=== PATIENT | female | born 1965 | race American Indian/Alaskan Native ===

== ENCOUNTER 2017-09-29 15:42 | Emergency (ER) | payer SELFPAY ==
[2017-09-29 15:49] VITALS: BP 161/103
== END 2017-09-29 18:15 | disposition left against medical advice (07) ==
LOC: ED 15:42
DX: Z43.1 Encounter for attention to gastrostomy (principal); Z53.21 Procedure and treatment not carried out due to patient leaving prior to being seen by health care provider

== ENCOUNTER 2019-03-20 13:07 | Emergency (ER) | payer SELFPAY ==
--- NOTE | 2019-03-20 13:58 | Event Note ---
ED Screening Note ED Screening Note: This initial assessment/diagnostic orders/clinical plan/treatment(s) is/are subject to change based on patients health status, clinical progression and re- assessment by fellow clinical providers in the ED. Further treatment and workup at subsequent clinical providers discretion. Patient/guardian urged not to elope from the ED as their condition may be serious if not clinically assessed and managed. Initial orders include: 53 yo female present with difficulty with eating and drinking due to stomach tube. Stomach tube was placed in 2015. She has progressed to eating and drinking by mouth since tube placement, but now the food and liquids excrete through the tube during meals. She further states that she feels tired and dehydrated.
[2019-03-20 14:53] VITALS: BP 157/108
--- NOTE | 2019-03-20 15:04 | Emergency Department Report ---
ED General Adult HPI - General Chief complaint: Medical Clearance Stated complaint: FEEDING TUBE REMOVED Time Seen by Provider: 03/20/19 14:23 Source: patient, family Mode of arrival: Wheelchair Limitations: Physical Limitation - History of Present Illness Initial comments: 53 y/o female presents to emergency medicine department with family requesting G -tube removal. Patient to the intensive descending 2016. Reports been able to eat and drink to some capacity at present. Reports no pain or bleeding. No fevers or sweats. No abdominal bloating, hemoptysis, hematochezia, diarrhea, constipation.. The NG tube was placed at [facility]. Severity scale (0 -10): 0 Worsens with: none Associated Symptoms: denies: diaphoresis, loss of appetite, malaise, nausea/vomiting, syncope, weakness - Related Data Allergies Allergy/AdvReac Type Severity Reaction Status Date / Time No Known Allergies Allergy Verified 03/20/19 13:53 ED Review of Systems ROS: Stated complaint: FEEDING TUBE REMOVED Other details as noted in HPI Comment: All other systems reviewed and negative ED Past Medical Hx - Past Medical History Hx Hypertension: Yes Additional medical history: seizure - Surgical History Additional Surgical History: brain surg - Social History Smoking Status: Never Smoker ED Physical Exam - General Limitations: Physical Limitation General appearance: alert, in no apparent distress - Head Head exam: Present: atraumatic, normocephalic - Eye Eye exam: Present: normal appearance, PERRL, EOMI Pupils: Present: normal accommodation - ENT ENT exam: Present: normal exam, normal orophraynx, mucous membranes moist - Neck Neck exam: Present: normal inspection, full ROM - Respiratory Respiratory exam: Present: normal lung sounds bilaterally. Absent: respiratory distress - Cardiovascular Cardiovascular Exam: Present: regular rate, normal rhythm. Absent: systolic murmur, diastolic murmur, rubs, gallop - GI/Abdominal GI/Abdominal exam: Present: soft, normal bowel sounds - Extremities Exam Extremities exam: Present: normal inspection, full ROM, normal capillary refill - Back Exam Back exam: Present: normal inspection, full ROM. Absent: CVA tenderness (R), CVA tenderness (L) - Neurological Exam Neurological exam: Present: alert, oriented X3, CN II-XII intact, normal gait - Psychiatric Psychiatric exam: Present: normal affect, normal mood. Absent: agitated, anxious, flat affect, manic, homicidal ideation - Skin Skin exam: Present: warm, dry, intact, normal color. Absent: rash ED Course Vital Signs 03/20/19 03/20/19 13:16 14:53 Temperature 98.2 F Pulse Rate 91 H Respiratory 18 Rate Blood Pressure 152/120 157/108 [Left] O2 Sat by Pulse 100 Oximetry ED Medical Decision Making - Medical Decision Making 53-year-old female with history of G-tube and no complication with the current G-tube presents to emergency department requesting G-tube removal.Advised family and patient of the need to F/U with GI or general surgery for evaluation for removal of Gtube. They are aware of the need for follow up and futher GI testing. Critical care attestation.: If time is entered above; I have spent that time in minutes in the direct care of this critically ill patient, excluding procedure time. ED Disposition Clinical Impression: Feeding difficulty in adult, HTN (hypertension) Disposition: DC-01 TO HOME OR SELFCARE Is pt being admited?: No Does the pt Need Aspirin: No Condition: Stable Instructions: How to Use and Care for Your PEG Tube (ED), Hypertension (ED) Referrals: [facility] [Provider Group] - 2-3 Days (Please follow up with gastrology for further evaluation and treatment options regarding a feeding tube)
== END 2019-03-20 15:00 | disposition home or self-care (01) ==
LOC: ED 13:07
DX: R63.3 Feeding difficulties (principal); I10 Essential (primary) hypertension; Z98.890 Other specified postprocedural states

== ENCOUNTER 2019-11-08 16:52 | Inpatient (IN) | payer MEDICARE ==
[2019-11-08] MEDS ORDERED: SODIUM CHLORIDE 0.9% 1000 ML 1,000 ML ONE (17:19)
[2019-11-08] MEDS ORDERED: SODIUM CHLORIDE 0.9% 1000 ML 1,000 ML IV ONE (17:22)
[2019-11-08] MEDS ORDERED: SODIUM CHLORIDE 0.9% 1000 ML IV SOLN IV ONE (17:59)
[2019-11-08] MEDS ORDERED: cefTRIAXone/NS 2 GM/100 ML 2 GM/100 ML BAG IV SCH (18:00)
[2019-11-08 18:01] LABS: Basophils # (Auto) 0.1 K/mm3 (0.0-0.1); Eosinophils % (Auto) 0.1 % (0.0-4.3); Monocytes # (Auto) 0.4 K/mm3 (0.0-0.8); Monocytes % (Auto) 4.4 % (0.0-7.3)
[2019-11-08 18:11] LABS: INR 0.93 (0.87-1.13); Partial Thromboplastin Time 25.5 Sec. (24.2-36.6)
[2019-11-08 18:15] LABS: Basophils % (Auto) 0.2 % (0.0-1.8); Hematocrit 40.1 % (30.3-42.9); Hemoglobin 12.3 gm/dl (10.1-14.3); Lymphocytes % (Auto) 9.4 % (13.4-35.0); Mean Corpuscular HGB Conc 31 % (30-34); Mean Corpuscular Volume 74 fl (79-97); Red Blood Count 5.44 M/mm3 (3.65-5.03); Red Cell Distribution Width 16.4 % (13.2-15.2)
[2019-11-08 18:16] LABS: Albumin 3.3 g/dL (3.9-5); Calcium 9.1 mg/dL (8.4-10.2); Lymphocytes # (Auto) 0.7 K/mm3 (1.2-5.4)
[2019-11-08 18:26] LABS: Bacteria,Urine 2+ /HPF (Negative); Bilirubin,Urine NEG (Negative); Blood,Urine NEG (Negative); Color,Urine Yellow (Yellow); Mucus,Urine 3+ /HPF; Protein,Urine <15 mg/dL mg/dL (Negative)
[2019-11-08 18:28] LABS: RBC,Urine > 182.0 /HPF (0.0-6.0)
--- NOTE | 2019-11-08 18:35 | XRay Report ---
CHEST 1 VIEW INDICATION / CLINICAL INFORMATION: sepsis. COMPARISON: None available. FINDINGS: SUPPORT DEVICES: Gastrostomy tube projects over the left upper quadrant. HEART / MEDIASTINUM: No significant abnormality. LUNGS / PLEURA: No significant pulmonary or pleural abnormality. No pneumothorax. IMPRESSION: No acute cardiopulmonary abnormality. Signer Name: Tomas Raines MD Signed: 11/08/2019 6:30 PM Workstation Name: [id number]
[2019-11-08 18:51] LABS: Platelet Count 112 K/mm3 (140-440)
--- NOTE | 2019-11-08 19:00 | Emergency Department Report ---
ED General Adult HPI - General Chief complaint: Altered Mental Status Stated complaint: AMS PUI?: No Time Seen by Provider: 11/08/19 17:00 Source: EMS Mode of arrival: Stretcher Limitations: Altered Mental Status - History of Present Illness Initial comments: Patient is a 53-year-old F Turkish female with a past medical history of aneurysm with resulting encephalopathy seizures and recent failure to thrive who is presenting with altered mental status. Patient was found in hotel room. Paramedics not sure who called paramedics. Patient was unresponsive but was moving all extremities but not with any purpose. Patient is unable to speak at this time. Did speak with the patient sister who states that 3 days ago she spoke to her on the phone and patient did not sound well but was able to speak. Family's been encouraging her to eat and drink however this they do not believe that she has had anything to eat or drink in several days. - Related Data Previous Rx's Medication Instructions Recorded Last Taken Type Nitrofurantoin [place]/M-Cryst 100 mg PO Q12HR #14 capsule 09/13/19 Unknown Rx [Macrobid CAP] Ondansetron [Zofran Odt] 4 mg PO Q8HR PRN #20 tab.rapdis 09/13/19 Unknown Rx Allergies Allergy/AdvReac Type Severity Reaction Status Date / Time No Known Allergies Allergy Verified 03/20/19 13:53 ED Review of Systems ROS: Stated complaint: AMS Other details as noted in HPI Comment: Unobtainable due to pts medical conditions ED Past Medical Hx - Past Medical History Hx Hypertension: Yes Hx CVA: Yes Additional medical history: seizure - Surgical History Additional Surgical History: brain surg - Social History Smoking Status: Unknown if ever smoked - Medications Home Medications: Home Medications Medication Instructions Recorded Confirmed Last Taken Type Nitrofurantoin [place]/M-Cryst 100 mg PO Q12HR #14 capsule 09/13/19 Unknown Rx [Macrobid CAP] Ondansetron [Zofran Odt] 4 mg PO Q8HR PRN #20 tab.rapdis 09/13/19 Unknown Rx ED Physical Exam - General Limitations: Altered Mental Status General appearance: lethargic, cachectic (Patient is severely cachectic. She has skin tenting. Patient is taxi cab driver license from 2016 states that she has a history of being obese however she is approximately 66 pounds at this time.) - Head Head exam: Present: atraumatic, normocephalic - Eye Eye exam: Present: normal appearance - ENT ENT exam: Present: mucous membranes dry - Neck Neck exam: Present: normal inspection - Respiratory Respiratory exam: Present: normal lung sounds bilaterally. Absent: respiratory distress, wheezes, rales, rhonchi - Cardiovascular Cardiovascular Exam: Present: regular rate, normal rhythm. Absent: systolic murmur, diastolic murmur, rubs, gallop - GI/Abdominal GI/Abdominal exam: Present: soft, normal bowel sounds. Absent: distended, tenderness, guarding, rebound - Extremities Exam Extremities exam: Present: normal inspection - Back Exam Back exam: Present: normal inspection - Neurological Exam Neurological exam: Present: alert, altered - Skin Skin exam: Present: warm, dry, intact, normal color. Absent: rash ED Course Vital Signs 11/08/19 11/08/19 11/08/19 16:59 17:00 17:09 Pulse Rate 80 76 82 Respiratory 12 15 14 Rate Blood Pressure 104/75 104/75 O2 Sat by Pulse 90 100 Oximetry 11/08/19 11/08/19 11/08/19 17:15 17:30 17:45 Pulse Rate 75 75 74 Respiratory 16 12 16 Rate Blood Pressure 90/69 90/69 82/62 O2 Sat by Pulse 100 99 Oximetry ED Medical Decision Making - Lab Data Result diagrams: 11/08/19 17:45 11/08/19 17:45 Lab Results 11/08/19 11/08/19 11/08/19 Range/Units 17:14 17:45 17:45 WBC 7.8 (4.5-11.0) K/mm3 RBC 5.44 H (3.65-5.03) M/mm3 Hgb 12.3 (10.1-14.3) gm/dl Hct 40.1 (30.3-42.9) % MCV 74 L (79-97) fl MCH 23 L (28-32) pg MCHC 31 (30-34) % RDW 16.4 H (13.2-15.2) % Plt Count 112 L (140-440) K/mm3 Lymph % (Auto) 9.4 L (13.4-35.0) % [place] % (Auto) 4.4 (0.0-7.3) % Eos % (Auto) 0.1 (0.0-4.3) % Baso % (Auto) 0.2 (0.0-1.8) % Lymph # 0.7 L (1.2-5.4) K/mm3 [place] # 0.4 (0.0-0.8) K/mm3 Eos # 0.0 (0.0-0.4) K/mm3 Baso # 0.1 (0.0-0.1) K/mm3 Seg Neutrophils % 84.8 H (40.0-70.0) % Seg Neutrophils # 6.9 (1.8-7.7) K/mm3 PT 12.3 (12.2-14.9) Sec. INR 0.93 (0.87-1.13) APTT 25.5 (24.2-36.6) Sec. Sodium (137-145) mmol/L Potassium (3.6-5.0) mmol/L Chloride (98-107) mmol/L Carbon Dioxide (22-30) mmol/L Anion Gap mmol/L BUN (7-17) mg/dL Creatinine (0.7-1.2) mg/dL Estimated GFR ml/min BUN/Creatinine Ratio % Glucose (65-100) mg/dL POC Glucose 95 (70-105) Lactic Acid (0.7-2.0) mmol/L Calcium (8.4-10.2) mg/dL Total Bilirubin (0.1-1.2) mg/dL AST (5-40) units/L ALT (7-56) units/L Alkaline Phosphatase (35-129) units/L Total Protein (6.3-8.2) g/dL Albumin (3.9-5) g/dL Albumin/Globulin Ratio % Urine Color (Yellow) Urine Turbidity (Clear) Urine pH (5.0-7.0) Ur Specific [place] (1.003-1.030) Urine Protein (Negative) mg/dL Urine Glucose (UA) (Negative) mg/dL Urine Ketones (Negative) mg/dL Urine Blood (Negative) Urine Nitrite (Negative) Urine Bilirubin (Negative) Urine Urobilinogen (<2.0) mg/dL Ur Leukocyte Esterase (Negative) Urine WBC (Auto) (0.0-6.0) /HPF Urine RBC (Auto) (0.0-6.0) /HPF U Epithel Cells (Auto) (0-13.0) /HPF Urine Bacteria (Auto) (Negative) /HPF Urine Mucus /HPF 11/08/19 11/08/19 11/08/19 Range/Units 17:45 17:51 18:10 WBC (4.5-11.0) K/mm3 RBC (3.65-5.03) M/mm3 Hgb (10.1-14.3) gm/dl Hct (30.3-42.9) % MCV (79-97) fl MCH (28-32) pg MCHC (30-34) % RDW (13.2-15.2) % Plt Count (140-440) K/mm3 Lymph % (Auto) (13.4-35.0) % [place] % (Auto) (0.0-7.3) % Eos % (Auto) (0.0-4.3) % Baso % (Auto) (0.0-1.8) % Lymph # (1.2-5.4) K/mm3 [place] # (0.0-0.8) K/mm3 Eos # (0.0-0.4) K/mm3 Baso # (0.0-0.1) K/mm3 Seg Neutrophils % (40.0-70.0) % Seg Neutrophils # (1.8-7.7) K/mm3 PT (12.2-14.9) Sec. INR (0.87-1.13) APTT (24.2-36.6) Sec. Sodium 165 H* (137-145) mmol/L Potassium 3.5 L (3.6-5.0) mmol/L Chloride 115.8 H (98-107) mmol/L Carbon Dioxide 22 (22-30) mmol/L Anion Gap 29 mmol/L BUN 84 H (7-17) mg/dL Creatinine 2.1 H (0.7-1.2) mg/dL Estimated GFR 30 ml/min BUN/Creatinine Ratio 40 % Glucose 129 H (65-100) mg/dL POC Glucose (70-105) Lactic Acid 1.90 (0.7-2.0) mmol/L Calcium 9.1 (8.4-10.2) mg/dL Total Bilirubin 0.50 (0.1-1.2) mg/dL AST 116 H (5-40) units/L ALT 66 H (7-56) units/L Alkaline Phosphatase 144 H (35-129) units/L Total Protein 5.9 L (6.3-8.2) g/dL Albumin 3.3 L (3.9-5) g/dL Albumin/Globulin Ratio 1.3 % Urine Color Yellow (Yellow) Urine Turbidity Clear (Clear) Urine pH 7.0 (5.0-7.0) Ur Specific [place] 1.019 (1.003-1.030) Urine Protein <15 mg/dl (Negative) mg/dL Urine Glucose (UA) Neg (Negative) mg/dL Urine Ketones Neg (Negative) mg/dL Urine Blood Neg (Negative) Urine Nitrite Neg (Negative) Urine Bilirubin Neg (Negative) Urine Urobilinogen 4.0 (<2.0) mg/dL Ur Leukocyte Esterase Neg (Negative) Urine WBC (Auto) 40.0 H (0.0-6.0) /HPF Urine RBC (Auto) > 182.0 (0.0-6.0) /HPF U Epithel Cells (Auto) 1.0 (0-13.0) /HPF Urine Bacteria (Auto) 2+ (Negative) /HPF Urine Mucus 3+ /HPF Vital Signs 11/08/19 11/08/19 11/08/19 16:59 17:00 17:09 Pulse Rate 80 76 82 Respiratory 12 15 14 Rate Blood Pressure 104/75 104/75 O2 Sat by Pulse 90 100 Oximetry 11/08/19 11/08/19 11/08/19 17:15 17:30 17:45 Pulse Rate 75 75 74 Respiratory 16 12 16 Rate Blood Pressure 90/69 90/69 82/62 O2 Sat by Pulse 100 99 Oximetry - Radiology Data Ordering Physician: AISHWARYA HERNANDEZ MD Date of Service: 11/08/19 Procedure(s): XR chest 1V ap Accession Number(s): [id number] cc: AISHWARYA HERNANDEZ MD Fluoro Time In Minutes: CHEST 1 VIEW INDICATION / CLINICAL INFORMATION: sepsis. COMPARISON: None available. FINDINGS: SUPPORT DEVICES: Gastrostomy tube projects over the left upper quadrant. HEART / MEDIASTINUM: No significant abnormality. LUNGS / PLEURA: No significant pulmonary or pleural abnormality. No pneumothorax. IMPRESSION: No acute cardiopulmonary abnormality. Signer Name: Tomas Raines MD Signed: 11/08/2019 6:30 PM Workstation Name: [id number] - Medical Decision Making Patient is a 53-year-old F Turkish female is presenting with altered mental status. Patient is extremely cachectic and presented unresponsive with a right gaze deviation and with hypotensive blood pressure. Patient was placed on sepsis protocol. Patient was started getting IV fluids and her blood pressure did respond. Patient does have urinary tract infection was given Rocephin. Did speak with the patient's sister who stated that they had had discussions in the past about the patient being DNR and she does not feel as though she would want resuscitative efforts. Patient was made DNR here in emergency department Critical Care Time: Yes (30) Critical care attestation.: If time is entered above; I have spent that time in minutes in the direct care of this critically ill patient, excluding procedure time. ED Disposition Clinical Impression: Severe dehydration, Acute renal failure, Hypernatremia, Acute cystitis Disposition: OP ADMIT IP TO THIS HOSP Is pt being admited?: Yes Does the pt Need Aspirin: No Condition: Stable Time of Disposition: 19:02
[2019-11-08] MEDS ORDERED: SODIUM CHLORIDE 0.9% 1000 ML 1,000 ML IV SCH (19:15)
--- NOTE | 2019-11-08 19:27 | Cat Scan Report ---
CT head/brain wo con INDICATION / CLINICAL INFORMATION: altered mental status. TECHNIQUE: All CT scans at this location are performed using CT dose reduction for ALARA by means of automated e xposure control. COMPARISON: None available. FINDINGS: Ventricle size is increased for patient age. There is a focal low-density area seen in the right basa l ganglion and thalamus probably due to acute infarction. No mass or mass effect is seen. There is no evidence of intracranial hemorrhage. Visualized paranasal sinuses are clear. IMPRESSION: 1. Focal low density in the right basal ganglion and thalamus worrisome for acute infarction 2. Ventricle size is increased for patient age Signer Name: Navin Hernandez MD FACR Signed: 11/08/2019 7:23 PM Workstation Name: [id number]
[2019-11-08] MEDS ORDERED: ACETAMINOPHEN 325 MG TAB PO PRN ×2 (22:18→22:20)
[2019-11-08] MEDS ORDERED: ONDANSETRON 4 MG/2 ML INJ IV PRN ×2 (22:18→22:20)
[2019-11-08] MEDS ORDERED: HYDROmorphone 1 MG/1 ML INJ IV PRN (22:19)
[2019-11-09] MEDS: DEXTROSE 5% IN WATER 1,000 ML IV SCH ×3 (00:07→21:57)
[2019-11-09] MEDS: MORPHINE 2 MG/1 ML INJ IV PRN ×2 (00:13→04:33)
[2019-11-09] MEDS: FAMOTIDINE 20 MG/2 ML INJ IV SCH ×3 (00:13→21:56)
[2019-11-09 06:01] LABS: Basophils % (Auto) 0.1 % (0.0-1.8); Eosinophils % (Auto) 0.1 % (0.0-4.3); Hematocrit 34.1 % (30.3-42.9); Hemoglobin 10.4 gm/dl (10.1-14.3); Lymphocytes # (Auto) 0.4 K/mm3 (1.2-5.4); Mean Corpuscular HGB Conc 30 % (30-34); Mean Corpuscular Volume 75 fl (79-97); Monocytes # (Auto) 0.5 K/mm3 (0.0-0.8); Red Blood Count 4.55 M/mm3 (3.65-5.03); Red Cell Distribution Width 16.4 % (13.2-15.2)
[2019-11-09 06:08] LABS: Albumin 2.9 g/dL (3.9-5); Calcium 8.4 mg/dL (8.4-10.2)
[2019-11-09 06:18] LABS: Platelet Count 117 K/mm3 (140-440)
[2019-11-09] MEDS ORDERED: FAMOTIDINE 20 MG TAB PO SCH (10:00)
[2019-11-09] MEDS: cefTRIAXone/NS 1 GM/50 ML 1 GM/50 ML BAG IV SCH (10:36)
--- NOTE | 2019-11-09 11:14 | History and Physical Report ---
History of Present Illness Date of examination: 11/08/19 Date of admission: 11/08/19 19:05 Chief complaint: Altered sensorium 3 days History of present illness: 53-year-old Ukrainian female with a past medical history of aneurysm with resulting encephalopathy seizures and recent failure to thrive who is presenting with altered mental status. Patient was found in hotel room. Paramedics not sure who called paramedics. Patient was unresponsive but was moving all e xtremities but not with any purpose. Patient is unable to speak at this time. ED physician spoke with the patient sister who states that 3 days ago she spoke to her on the phone and patient did not sound well but was able to speak. Family's been encouraging her to eat and drink however this they do not believe that she has had anything to eat or drink in several days. Past Medical History Hypertension: Yes CVA: Yes Additional medical history: seizure Surgical History Additional Surgical History: brain surg Social History Smoking Status: Unknown if ever smoked Family History Not available Medications Home Medications: Home Medications Medication Instructions Recorded Confirmed Last Taken Type Nitrofurantoin [place]/M-Cryst 100 mg PO Q12HR #14 capsule 09/13/19 Unknown Rx [Macrobid CAP] Ondansetron [Zofran Odt] 4 mg PO Q8HR PRN #20 tab.rapdis 09/13/19 Unknown Rx Review of Systems ROS: Stated complaint: AMS Other details as noted in HPI Comment: Unobtainable due to pts medical conditions Medications and Allergies Allergies Allergy/AdvReac Type Severity Reaction Status Date / Time No Known Allergies Allergy Verified 03/20/19 13:53 Home Medications Medication Instructions Recorded Confirmed Last Taken Type Nitrofurantoin [place]/M-Cryst 100 mg PO Q12HR #14 capsule 09/13/19 Unknown Rx [Macrobid CAP] Ondansetron [Zofran Odt] 4 mg PO Q8HR PRN #20 tab.rapdis 09/13/19 Unknown Rx Active Meds: Active Medications Acetaminophen (Tylenol) 650 mg PO Q4H PRN PRN Reason: Pain MILD(1-3)/Fever >100.5/[place]BR[place] Famotidine (Pepcid) 10 mg IV BID ANIYAH Last Admin: 11/09/19 10:35 Dose: 10 mg Documented by: Hydromorphone HCl (Dilaudid) 0.5 mg IV Q3H PRN PRN Reason: Pain , Severe (7-10) Last Admin: 11/08/19 22:33 Dose: 0.5 mg Documented by: Dextrose (D5w) 1,000 mls @ 150 mls/hr IV DIRECT ANIYAH Last Admin: 11/09/19 00:07 Dose: 150 mls/hr Documented by: Ceftriaxone Sodium (Rocephin/Ns 1 Gm/50 Ml) 1 gm in 50 mls @ 100 mls/hr IV Q24HR ANIYAH; Protocol Last Admin: 11/09/19 10:36 Dose: 100 mls/hr Documented by: Morphine Sulfate (Morphine) 2 mg IV Q4H PRN PRN Reason: Pain, Moderate (4-6) Last Admin: 11/09/19 04:33 Dose: 2 mg Documented by: Ondansetron HCl (Zofran) 4 mg IV Q8H PRN PRN Reason: Nausea And Vomiting Sodium Chloride (Sodium Chloride Flush Syringe 10 Ml) 10 ml IV BID [facility] Last Admin: 11/09/19 10:36 Dose: Not Given Documented by: Sodium Chloride (Sodium Chloride Flush Syringe 10 Ml) 10 ml IV PRN PRN PRN Reason: LINE FLUSH Exam - Constitutional Vitals: Temp Pulse Resp BP Pulse Ox 97.3 F L 68 18 123/79 96 11/09/19 04:20 11/09/19 08:55 11/09/19 04:20 11/09/19 04:20 11/09/19 04:30 General appearance: Present: no acute distress, well-nourished - EENT Eyes: Present: PERRL ENT: hearing intact, clear oral mucosa - Neck Neck: Present: supple, normal ROM - Respiratory Respiratory effort: normal Respiratory: bilateral: CTA - Cardiovascular Heart rate: 78 Rhythm: regular Heart Sounds: Present: S1 & S2. Absent: rub, click - Extremities Extremities: no ischemia, pulses intact, pulses symmetrical, No edema Peripheral Pulses: within normal limits - Abdominal General gastrointestinal: Present: soft, non-tender, non-distended, normal bowel sounds Female genitourinary: Present: normal - Rectal Rectal Exam: deferred - Integumentary Integumentary: Present: clear, warm, dry - Musculoskeletal Musculoskeletal: generalized weakness - Neurologic Neurologic: CNII-XII intact, moves all extremities, other (Alert but decreased responsiveness) - Allied Health Allied health notes reviewed: nursing, case management Results - Labs CBC & Chem 7: 11/09/19 05:26 11/09/19 05:26 Labs: Laboratory Last Values WBC 7.1 K/mm3 (4.5-11.0) 11/09/19 05:26 RBC 4.55 M/mm3 (3.65-5.03) 11/09/19 05:26 Hgb 10.4 gm/dl (10.1-14.3) 11/09/19 05:26 Hct 34.1 % (30.3-42.9) D 11/09/19 05:26 MCV 75 fl (79-97) L 11/09/19 05:26 MCH 23 pg (28-32) L 11/09/19 05:26 MCHC 30 % (30-34) 11/09/19 05:26 RDW 16.4 % (13.2-15.2) H 11/09/19 05:26 Plt Count 117 K/mm3 (140-440) L 11/09/19 05:26 Lymph % (Auto) 6.0 % (13.4-35.0) L 11/09/19 05:26 [place] % (Auto) 7.0 % (0.0-7.3) 11/09/19 05:26 Eos % (Auto) 0.1 % (0.0-4.3) 11/09/19 05:26 Baso % (Auto) 0.1 % (0.0-1.8) 11/09/19 05:26 Lymph # 0.4 K/mm3 (1.2-5.4) L 11/09/19 05:26 [place] # 0.5 K/mm3 (0.0-0.8) 11/09/19 05:26 Eos # 0.0 K/mm3 (0.0-0.4) 11/09/19 05:26 Baso # 0.0 K/mm3 (0.0-0.1) 11/09/19 05:26 Seg Neutrophils % 86.8 % (40.0-70.0) H 11/09/19 05:26 Seg Neutrophils # 6.2 K/mm3 (1.8-7.7) 11/09/19 05:26 PT 12.3 Sec. (12.2-14.9) 11/08/19 17:45 INR 0.93 (0.87-1.13) 11/08/19 17:45 APTT 25.5 Sec. (24.2-36.6) 11/08/19 17:45 Sodium 160 mmol/L (137-145) H 11/09/19 05:26 Potassium 3.5 mmol/L (3.6-5.0) L 11/09/19 05:26 Chloride 115.7 mmol/L (98-107) H 11/09/19 05:26 Carbon Dioxide 27 mmol/L (22-30) 11/09/19 05:26 Anion Gap 21 mmol/L 11/09/19 05:26 BUN 81 mg/dL (7-17) H 11/09/19 05:26 Creatinine 1.8 mg/dL (0.7-1.2) H 11/09/19 05:26 Estimated GFR 36 ml/min 11/09/19 05:26 BUN/Creatinine Ratio 45 % 11/09/19 05:26 Glucose 254 mg/dL (65-100) H 11/09/19 05:26 POC Glucose 95 (70-105) 11/08/19 17:14 Lactic Acid 1.60 mmol/L (0.7-2.0) 11/08/19 20:33 Calcium 8.4 mg/dL (8.4-10.2) 11/09/19 05:26 Total Bilirubin 0.30 mg/dL (0.1-1.2) 11/09/19 05:26 AST 69 units/L (5-40) H 11/09/19 05:26 ALT 52 units/L (7-56) 11/09/19 05:26 Alkaline Phosphatase 121 units/L (35-129) 11/09/19 05:26 Total Protein 5.7 g/dL (6.3-8.2) L 11/09/19 05:26 Albumin 2.9 g/dL (3.9-5) L 11/09/19 05:26 Albumin/Globulin Ratio 1.0 % 11/09/19 05:26 Urine Color Yellow (Yellow) 11/08/19 17:51 Urine Turbidity Clear (Clear) 11/08/19 17:51 Urine pH 7.0 (5.0-7.0) 11/08/19 17:51 Ur Specific [place] 1.019 (1.003-1.030) 11/08/19 17:51 Urine Protein <15 mg/dl mg/dL (Negative) 11/08/19 17:51 Urine Glucose (UA) Neg mg/dL (Negative) 11/08/19 17:51 Urine Ketones Neg mg/dL (Negative) 11/08/19 17:51 Urine Blood Neg (Negative) 11/08/19 17:51 Urine Nitrite Neg (Negative) 11/08/19 17:51 Urine Bilirubin Neg (Negative) 11/08/19 17:51 Urine Urobilinogen 4.0 mg/dL (<2.0) 11/08/19 17:51 Ur Leukocyte Esterase Neg (Negative) 11/08/19 17:51 Urine WBC (Auto) 40.0 /HPF (0.0-6.0) H 11/08/19 17:51 Urine RBC (Auto) > 182.0 /HPF (0.0-6.0) 11/08/19 17:51 U Epithel Cells (Auto) 1.0 /HPF (0-13.0) 11/08/19 17:51 Urine Bacteria (Auto) 2+ /HPF (Negative) 11/08/19 17:51 Urine Mucus 3+ /HPF 11/08/19 17:51 Microbiology: Microbiology 11/08/19 18:10 Peripheral/Venous Blood Culture - Preliminary Culture in Progress 11/08/19 18:10 Peripheral/Venous Blood Culture - Preliminary Culture in Progress - Imaging and Cardiology Chest x-ray: report reviewed (NAF ) Imaging and Cardiology: CT Head 1. Focal low density in the right basal ganglion and thalamus worrisome for acute infarction 2. Ventricle size is increased for patient age Do/IV: Voiding Method Diaper IV Catheter Type [Left Leg] Peripheral IV Assessment and Plan Advance Directives: Yes (AND/DNR) VTE prophylaxis?: Chemical Plan of care discussed with patient/family: Yes - Patient Problems (1) Encephalopathy acute Current Visit: Yes Status: Acute Plan to address problem: Secondary to severe dehydration UTI and Hypernatremia (2) KWABENA (acute kidney injury) Current Visit: Yes Status: Acute Plan to address problem: Sec to ATN IV D5W for now Nephrology consult requested (3) Acute cystitis Current Visit: Yes Status: Acute Plan to address problem: IV Rocephin for now (4) Hypernatremia Current Visit: Yes Status: Acute Plan to address problem: IV D5W for now (5) Advance care planning Current Visit: Yes Status: Acute Plan to address problem: Family agreed for DNR (6) Hyperosmolality syndrome Current Visit: Yes Status: Acute Plan to address problem: IV D5W for now Check osmolarity (7) DVT prophylaxis Current Visit: Yes Status: Acute Plan to address problem: On Heparin and GI prophylaxis
--- NOTE | 2019-11-09 11:48 | Consultation ---
History of Present Illness - Reason for Consult Consult date: 11/09/19 acute renal failure, hypernatremia - History of Present Illness The patient is a 53 YO old AAF with history significant for aneurysm with resulting encephalopathy, seizures and s/p PEG tube who presented to [facility] ED 11/07 with altered mental status. Unable to obtain any history from patient and there was no family member at the bedside. She was found in hotel room. Paramedics not sure who called the. ED physician spoke with the patient sister who states that 3 days ago she spoke to her on the phone and patient did not sound well but was able to speak. Family's been encouraging her to eat and drink however this they do not believe that she has had anything to eat or drink in several days. Labs significant for Creat 2.1 and Sodium 165. Nephrology was consulted for further evaluation. Past History Past Medical History: other (See HPI.) Medications and Allergies Allergies Allergy/AdvReac Type Severity Reaction Status Date / Time No Known Allergies Allergy Verified 03/20/19 13:53 Home Medications Medication Instructions Recorded Confirmed Last Taken Type Nitrofurantoin [place]/M-Cryst 100 mg PO Q12HR #14 capsule 09/13/19 Unknown Rx [Macrobid CAP] Ondansetron [Zofran Odt] 4 mg PO Q8HR PRN #20 tab.rapdis 09/13/19 Unknown Rx Active Meds: Active Medications Acetaminophen (Tylenol) 650 mg PO Q4H PRN PRN Reason: Pain MILD(1-3)/Fever >100.5/MEMBRENO Famotidine (Pepcid) 10 mg IV BID ANIYAH Last Admin: 11/09/19 10:35 Dose: 10 mg Documented by: Hydromorphone HCl (Dilaudid) 0.5 mg IV Q3H PRN PRN Reason: Pain , Severe (7-10) Last Admin: 11/08/19 22:33 Dose: 0.5 mg Documented by: Dextrose (D5w) 1,000 mls @ 150 mls/hr IV DIRECT ANIYAH Last Admin: 11/09/19 00:07 Dose: 150 mls/hr Documented by: Ceftriaxone Sodium (Rocephin/Ns 1 Gm/50 Ml) 1 gm in 50 mls @ 100 mls/hr IV Q24HR ANIYAH; Protocol Last Admin: 11/09/19 10:36 Dose: 100 mls/hr Documented by: Morphine Sulfate (Morphine) 2 mg IV Q4H PRN PRN Reason: Pain, Moderate (4-6) Last Admin: 11/09/19 04:33 Dose: 2 mg Documented by: Ondansetron HCl (Zofran) 4 mg IV Q8H PRN PRN Reason: Nausea And Vomiting Sodium Chloride (Sodium Chloride Flush Syringe 10 Ml) 10 ml IV BID ANIYAH Last Admin: 11/09/19 10:36 Dose: Not Given Documented by: Sodium Chloride (Sodium Chloride Flush Syringe 10 Ml) 10 ml IV PRN PRN PRN Reason: LINE FLUSH Review of Systems ROS unobtainable: due to mental status Exam - Vital Signs Vital signs: Vital Signs Pulse Resp 80 12 11/08/19 16:59 11/08/19 16:59 - General Appearance General appearance: well-developed, cachectic, other (no distress) EENT: ATNC, PERRL Neck: Present: neck supple, trachea midline Respiratory: Clear to Ascultation Heart: regular, S1S2, no murmurs Gastrointestinal: Present: normoactive bowel sounds, other (PEG tube noted). Absent: tenderness, distended Integumentary: no rash, warm and dry Neurologic: obtunded Musculoskeletal: Present: other (no edema) Results - Lab Results 11/09/19 05:26 11/09/19 05:26 Most recent lab results Calcium 8.4 mg/dL (8.4-10.2) 11/09/19 05:26 - Image Kidney/bladder ultrasound: pending Assessment and Plan 1. Acute kidney injury: Vasomotor KWABENA in the setting of volume depletion. Urine studies and Renal US ordered. BP was low, now improving. Continue IV fluids. Monitor renal function. Creatinine is 1.8 from 2.1. Renal prognosis is guarded. Avoid nephrotoxic agents. Meds dosage based on GFR. 2. FEN: Hypernatremia, continue IV D5W, improving, monitor. Monitor lytes and volume status. 3. Encephalopathy, POA. 4. Elevated Transaminases. 5. UTI.
[2019-11-09] MEDS: HEPARIN 5,000 UNIT/1 ML VIAL SUB-Q SCH ×2 (13:30→21:56)
--- NOTE | 2019-11-10 04:09 | Progress Note ---
Assessment and Plan - Patient Problems (1) Encephalopathy acute Current Visit: Yes Status: Acute Plan to address problem: Secondary to severe dehydration UTI and Hypernatremia (2) KWABENA (acute kidney injury) Current Visit: Yes Status: Acute Plan to address problem: Sec to ATN IV D5W for now Nephrology consult requested (3) Acute cystitis Current Visit: Yes Status: Acute Plan to address problem: IV Rocephin for now (4) Hypernatremia Current Visit: Yes Status: Acute Plan to address problem: IV D5W for now (5) Advance care planning Current Visit: Yes Status: Acute Plan to address problem: Family agreed for DNR (6) Hyperosmolality syndrome Current Visit: Yes Status: Acute Plan to address problem: IV D5W for now Check osmolarity (7) DVT prophylaxis Current Visit: Yes Status: Acute Plan to address problem: On Heparin and GI prophylaxis Subjective Date of service: 11/09/19 Principal diagnosis: Acute Encephalopathy Interval history: 53-year-old Spanish female with a past medical history of aneurysm with resulting encephalopathy seizures and recent failure to thrive who is presenting with altered mental status. Patient was found in hotel room. Paramedics not sure who called paramedics. Patient was unresponsive but was moving all extremities but not with any purpose. Patient is unable to speak at this time. ED physician spoke with the patient sister who states that 3 days ago she spoke to her on the phone and patient did not sound well but was able to speak. Darshan carbajal's been encouraging her to eat and drink however this they do not believe that she has had anything to eat or drink in several days. Mopre alert compared to yesterday Objective - Constitutional Vitals: Vital Signs - 12hr 11/09/19 11/09/19 11/09/19 16:50 17:09 20:23 Temperature 98.0 F 97.5 F L Pulse Rate 59 L Pulse Rate [ Apical] Respiratory 18 16 Rate Blood Pressure 125/89 102/72 O2 Sat by Pulse 96 100 Oximetry 11/09/19 11/09/19 11/09/19 22:00 22:02 23:53 Temperature 97.6 F Pulse Rate 74 35 L Pulse Rate [ 59 L Apical] Respiratory 16 18 Rate Blood Pressure 111/87 O2 Sat by Pulse 100 94 Oximetry 11/09/19 23:56 Temperature Pulse Rate 74 Pulse Rate [ Apical] Respiratory Rate Blood Pressure O2 Sat by Pulse Oximetry General appearance: Present: no acute distress, well-nourished - EENT Eyes: PERRL, EOM intact ENT: hearing intact, clear oral mucosa Ears: bilateral: normal - Neck Neck: supple, normal ROM - Respiratory Respiratory effort: normal Respiratory: bilateral: CTA - Breasts Breasts: deferred - Cardiovascular Rhythm: regular Heart Sounds: Present: S1 & S2. Absent: gallop, rub Extremities: pulses intact, No edema, normal color, Full ROM - Gastrointestinal General gastrointestinal: Present: soft, non-tender, non-distended, normal bowel sounds - Genitourinary Female genitourinary: normal - Integumentary Integumentary: clear, warm, dry - Musculoskeletal Musculoskeletal: 1, strength equal bilaterally - Neurologic Neurologic: moves all extremities - Psychiatric Psychiatric: memory intact, appropriate mood/affect, intact judgment & insight - Allied health notes Allied health notes reviewed: nursing, case management - Labs CBC & Chem 7: 11/09/19 05:26 11/09/19 05:26 Labs: Abnormal lab results 11/09/19 11/09/19 Range/Units 05:26 05:26 MCV 75 L (79-97) fl MCH 23 L (28-32) pg RDW 16.4 H (13.2-15.2) % Plt Count 117 L (140-440) K/mm3 Lymph % (Auto) 6.0 L (13.4-35.0) % Lymph # 0.4 L (1.2-5.4) K/mm3 Seg Neutrophils % 86.8 H (40.0-70.0) % Sodium 160 H (137-145) mmol/L Potassium 3.5 L (3.6-5.0) mmol/L Chloride 115.7 H (98-107) mmol/L BUN 81 H (7-17) mg/dL Creatinine 1.8 H (0.7-1.2) mg/dL Glucose 254 H (65-100) mg/dL AST 69 H (5-40) units/L Total Protein 5.7 L (6.3-8.2) g/dL Albumin 2.9 L (3.9-5) g/dL
[2019-11-10 05:31] LABS: Albumin 2.6 g/dL (3.9-5); Calcium 8.1 mg/dL (8.4-10.2)
[2019-11-10] MEDS ORDERED: POTASSIUM PHOSPHATE 30 MMOL in SODIUM CHLORIDE 0.9% 500 ML 500 ML IV ONE (08:30)
[2019-11-10] MEDS ORDERED: MAGNESIUM SULFATE 2 GM/50 ML BAG IV ONE (08:30)
[2019-11-10] MEDS: cefTRIAXone/NS 1 GM/50 ML 1 GM/50 ML BAG IV SCH (09:11)
[2019-11-10] MEDS: FAMOTIDINE 20 MG/2 ML INJ IV SCH ×2 (09:11→21:05)
[2019-11-10] MEDS: HEPARIN 5,000 UNIT/1 ML VIAL SUB-Q SCH ×2 (09:12→21:05)
--- NOTE | 2019-11-10 09:33 | Progress Note ---
Assessment and Plan 1. Acute kidney injury: Vasomotor KWABENA in the setting of volume depletion. Urine studies and Renal US ordered. BP was low, now improving. D5W d/c. Monitor renal function. Creatinine is 1.3 from 1.8 from 2.1. Renal prognosis is guarded. Avoid nephrotoxic agents. Meds dosage based on GFR. 2. FEN: Hypernatremia, D5W d/c, improving, monitor sodium level closely. Hypomagnesemia, replete mag, monitor. Hypokalemia, K-phos, d/c D5, monitor. Hypophosphatemia, K-phos, monitor. Repeat labs ordered for this afternoon, will monitor for results. Monitor lytes and volume status. 3. Encephalopathy, POA. 4. Elevated Transaminases. 5. UTI. On abx. 6. PEG tube malfunction: GI consulted. Subjective Date of service: 11/10/19 Principal diagnosis: Acute Encephalopathy Interval history: Patient was seen and examined at the bedside. Pt is now DNR. PEG tube is not functioning currently, awaiting GI. Discussed plan of care with primary RN regarding d/c of D5 at this time. Objective - Exam Narrative Exam: General appearance: well-developed, cachectic, no distress noted EENT: ATNC, PERRL Neck: neck supple, trachea midline Respiratory: Clear to Ascultation Heart: regular, S1S2, no murmurs Gastrointestinal: normoactive bowel sounds, PEG tube noted, no tenderness, no distension Integumentary: no rash, warm and dry Neurologic: awake, not following any command, no attempt at verbal communication Musculoskeletal: no edema noted - Vital Signs Vital signs: Vital Signs - 12hr 11/09/19 11/09/19 11/09/19 22:00 22:02 23:53 Temperature 97.6 F Pulse Rate 74 35 L Pulse Rate [ 59 L Apical] Respiratory 16 18 Rate Blood Pressure 111/87 O2 Sat by Pulse 100 94 Oximetry 11/09/19 11/10/19 11/10/19 23:56 05:15 06:00 Temperature 97.6 F Pulse Rate 74 68 68 Pulse Rate [ Apical] Respiratory 18 Rate Blood Pressure 128/82 O2 Sat by Pulse 100 Oximetry 11/10/19 07:10 Temperature 98.7 F Pulse Rate 69 Pulse Rate [ Apical] Respiratory 18 Rate Blood Pressure 154/88 O2 Sat by Pulse 100 Oximetry - Lab 11/09/19 05:26 11/10/19 04:22 Most recent lab results Calcium 8.1 mg/dL (8.4-10.2) L 11/10/19 04:22 Phosphorus 2.10 mg/dL (2.5-4.5) L 11/10/19 04:22 Magnesium 1.60 mg/dL (1.7-2.3) L 11/10/19 04:22 Medications & Allergies - Medications Allergies/Adverse Reactions: Allergies No Known Allergies Allergy (Verified 03/20/19 13:53) Home Medications: Home Medications Medication Instructions Recorded Confirmed Last Taken Type Nitrofurantoin [place]/M-Cryst 100 mg PO Q12HR #14 capsule 09/13/19 Unknown Rx [Macrobid CAP] Ondansetron [Zofran Odt] 4 mg PO Q8HR PRN #20 tab.rapdis 09/13/19 Unknown Rx Active Medications: Generic Name Dose Route Start Last Admin Trade Name Freq PRN Reason Stop Dose Admin Acetaminophen 650 mg 11/08/19 22:18 Tylenol PO Q4H PRN Pain MILD(1-3)/Fever >100.5/MEMBRENO Famotidine 10 mg 11/08/19 23:00 11/10/19 09:11 Pepcid IV 10 mg BID ANIYAH Administration Heparin Sodium (Porcine) 5,000 unit 11/09/19 12:00 11/10/19 09:12 Heparin SUB-Q 5,000 unit Q12HR ANIYAH Administration Hydromorphone HCl 0.5 mg 11/08/19 22:19 11/08/19 22:33 Dilaudid IV 0.5 mg Q3H PRN Administration Pain , Severe (7-10) Dextrose 1,000 mls @ 50 mls/hr 11/08/19 23:00 11/09/19 21:57 D5w IV 150 mls/hr DIRECT ANIYAH Administration Ceftriaxone Sodium 1 gm in 50 mls @ 100 mls/hr 11/09/19 10:00 11/10/19 09:11 Rocephin/Ns 1 Gm/50 Ml IV 11/15/19 10:29 100 mls/hr Q24HR ANIYAH Administration Protocol Potassium Phosphate 30 mmol/ 510 mls @ 85 mls/hr 11/10/19 08:30 11/10/19 08:17 Sodium Chloride IV 11/10/19 14:29 85 mls/hr ONCE ONE Administration Magnesium Sulfate 2 gm in 50 mls @ 25 mls/hr 11/10/19 08:30 11/10/19 08:14 Magnesium Sulfate 2gm/50ml IV 11/10/19 10:29 25 mls/hr ONCE ONE Administration Morphine Sulfate 2 mg 11/08/19 22:19 11/09/19 04:33 Morphine IV 2 mg Q4H PRN Administration Pain, Moderate (4-6) Ondansetron HCl 4 mg 11/08/19 22:18 Zofran IV Q8H PRN Nausea And Vomiting Sodium Chloride 10 ml 11/09/19 10:00 11/10/19 09:12 Sodium Chloride Flush Syringe 10 Ml IV 10 ml BID ANIYAH Administration Sodium Chloride 10 ml 11/08/19 22:18 Sodium Chloride Flush Syringe 10 Ml IV PRN PRN LINE FLUSH
--- NOTE | 2019-11-10 13:05 | Gastroenterology Consultation ---
History of Present Illness - Reason for Consult Consult date: 11/10/19 Malfunctioning PEG Requesting physician: JUNIOR LEMON - History of Present Illness The patient was admitted with what appears to be a new CVA, on top of prior brain injury (?aneurysm per old notes). She has had a PEG for at least a year, but it appears from old chart notes, that the patient was not using it, and wished for it to be removed. She was admitted after being found at a hotel, missing for 3 days per family. She is poorly responsive, and not taking PO here. Her PEG was noted to be dysfunctional by nursing, though a CT on admit shows the button in correct position in the lumen of the stomach. There has been no bleeding or discharge around the tube. The patient has had no emesis or melena. Past History Past Medical History: seizures, stroke (New, and hx of (?aneurysm)) Past Surgical History: Other (PEG, Brain Surgery) Social history: lives with family, other Family history: no significant family history Medications and Allergies Allergies Allergy/AdvReac Type Severity Reaction Status Date / Time No Known Allergies Allergy Verified 03/20/19 13:53 Home Medications Medication Instructions Recorded Confirmed Last Taken Type Nitrofurantoin [place]/M-Cryst 100 mg PO Q12HR #14 capsule 09/13/19 Unknown Rx [Macrobid CAP] Ondansetron [Zofran Odt] 4 mg PO Q8HR PRN #20 tab.rapdis 09/13/19 Unknown Rx Active Meds: Active Medications Acetaminophen (Tylenol) 650 mg PO Q4H PRN PRN Reason: Pain MILD(1-3)/Fever >100.5/[place] Famotidine (Pepcid) 10 mg IV BID [facility] Last Admin: 11/10/19 09:11 Dose: 10 mg Documented by: Heparin Sodium (Porcine) (Heparin) 5,000 unit SUB-Q Q12HR [facility] Last Admin: 11/10/19 09:12 Dose: 5,000 unit Documented by: Hydromorphone HCl (Dilaudid) 0.5 mg IV Q3H PRN PRN Reason: Pain , Severe (7-10) Last Admin: 11/08/19 22:33 Dose: 0.5 mg Documented by: Ceftriaxone Sodium (Rocephin/Ns 1 Gm/50 Ml) 1 gm in 50 mls @ 100 mls/hr IV Q24HR ANIYAH; Protocol Stop: 11/15/19 10:29 Last Admin: 11/10/19 09:11 Dose: 100 mls/hr Documented by: Potassium Phosphate 30 mmol/ (Sodium Chloride) 510 mls @ 85 mls/hr IV ONCE ONE Stop: 11/10/19 14:29 Last Admin: 11/10/19 08:17 Dose: 85 mls/hr Documented by: Morphine Sulfate (Morphine) 2 mg IV Q4H PRN PRN Reason: Pain, Moderate (4-6) Last Admin: 11/09/19 04:33 Dose: 2 mg Documented by: Ondansetron HCl (Zofran) 4 mg IV Q8H PRN PRN Reason: Nausea And Vomiting Sodium Chloride (Sodium Chloride Flush Syringe 10 Ml) 10 ml IV BID ANIYAH Last Admin: 11/10/19 09:12 Dose: 10 ml Documented by: Sodium Chloride (Sodium Chloride Flush Syringe 10 Ml) 10 ml IV PRN PRN PRN Reason: LINE FLUSH I HAVE REVIEWED/RECONCILED MEDICATIONS Review of Systems - Review of Systems ROS unobtainable: due to mental status Exam - Constitutional Vital Signs: Temp Pulse Resp BP Pulse Ox 98.1 F 80 19 141/73 100 11/10/19 11:00 11/10/19 11:00 11/10/19 11:00 11/10/19 11:00 11/10/19 11:00 General appearance: no acute distress, disheveled - EENT Eyes: PERRL, EOM intact ENT: clear oral mucosa, poor dentition - Neck Neck: supple, normal ROM - Respiratory Respiratory effort: normal Respiratory: bilateral: CTA - Cardiovascular Rhythm: regular Heart Sounds: Present: S1 & S2 Extremities: no ischemia, No edema - Gastrointestinal General gastrointestinal: Present: soft, non-tender, non-distended, other (PEG tube cracked and missing terminal connector; no obvious cellulitis or bleeding at base) - Integumentary Integumentary: Present: clear, warm - Musculoskeletal Musculoskeletal: other (Contracted LUE) - Neurologic Neurological: other (Follows no commands; nonverbal) - Labs CBC & Chem 7: 11/09/19 05:26 11/10/19 04:22 Lab Results: Laboratory Results - last 24 hr 11/10/19 04:22 Sodium 146 H D Potassium 3.1 L Chloride 106.3 Carbon Dioxide 26 Anion Gap 17 BUN 59 H Creatinine 1.3 H Estimated GFR 52 BUN/Creatinine Ratio 45 Glucose 138 H Calcium 8.1 L Phosphorus 2.10 L Magnesium 1.60 L Total Bilirubin 0.30 AST 39 ALT 38 Alkaline Phosphatase 106 Total Protein 4.8 L Albumin 2.6 L Albumin/Globulin Ratio 1.2 Assessment and Plan - Patient Problems (1) Malfunction of gastrostomy tube Current Visit: Yes Status: Acute Plan to address problem: - Given mental status, patient will likely require PEG tube feeds for some time. - Will order replacement PEG, and exchange out for current PEG tomorrow. - If urgent meds needed today, OK to place [facility] for administration (or for feeding; will not preclude PEG replacement tomorrow).
[2019-11-10 14:46] LABS: BUN/Creatinine Ratio 49; Blood Urea Nitrogen 49 mg/dL (7-17); Calcium 8.1 mg/dL (8.4-10.2); Hemolysis Index 11
[2019-11-10 18:16] LABS: Creatinine,Urine 14.8 mg/dL (0.1-20.0)
--- NOTE | 2019-11-11 02:39 | Ultrasound Report ---
EXAMINATION: Renal/Retroperitoneal Ultrasound INDICATION: Acute renal failure. COMPARISON: CT of the abdomen and pelvis, 09/12/2019 Findings: The right kidney appears normal in size and cortical echogenicity, measuring 9.8 cm in length. There is no evidence of hydronephrosis. The left kidney was unable to be visualized due to patient positioning and rib shadowing. A right pleural effusion is present. Impression: 1. No sonographic abnormality of the right kidney. 2. Nonvisualization of the left kidney. Signer Name: Claudia Rojas MD Signed: 11/11/2019 2:35 AM Workstation Name: [id number]
[2019-11-11 04:46] LABS: BUN/Creatinine Ratio 50; Blood Urea Nitrogen 40 mg/dL (7-17); Calcium 8.3 mg/dL (8.4-10.2); Hemolysis Index 4
--- NOTE | 2019-11-11 07:16 | Progress Note ---
Assessment and Plan - Patient Problems (1) Encephalopathy acute Current Visit: Yes Status: Acute Plan to address problem: Secondary to severe dehydration UTI and Hypernatremia (2) KWABENA (acute kidney injury) Current Visit: Yes Status: Acute Plan to address problem: Sec to ATN IV D5W for now Nephrology consult appreciated Creatinine near base line (3) Acute cystitis Current Visit: Yes Status: Acute Plan to address problem: IV Rocephin for now (4) Hypernatremia Current Visit: Yes Status: Acute Plan to address problem: IV D5W for now Improved Near baseline (5) Advance care planning Current Visit: Yes Status: Acute Plan to address problem: Family agreed for DNR (6) Hyperosmolality syndrome Current Visit: Yes Status: Acute Plan to address problem: IV D5W for now Check osmolarity (7) DVT prophylaxis Current Visit: Yes Status: Acute Plan to address problem: On Heparin and GI prophylaxis Subjective Date of service: 11/10/19 Principal diagnosis: Acute Encephalopathy Interval history: 53-year-old [place] female with a past medical history of aneurysm with resulting encephalopathy seizures and recent failure to thrive who is presenting with altered mental status. Patient was found in hotel room. Paramedics not sure who called paramedics. Patient was unresponsive but was moving all extremities but not with any purpose. Patient is unable to speak at this time. ED physician spoke with the patient sister who states that 3 days ago she spoke to her on the phone and patient did not sound well but was able to speak. Family's been encouraging her to eat and drink however this they do not believe that she has had anything to eat or drink in several days. Mopre alert today Objective - Constitutional Vitals: Vital Signs - 12hr 11/10/19 11/10/19 11/10/19 19:24 22:00 23:52 Temperature 98.0 F Pulse Rate 63 69 Pulse Rate [ 63 Left Radial] Pulse Rate [ 63 Right Radial] Respiratory 16 16 16 Rate Blood Pressure 137/93 137/91 O2 Sat by Pulse 94 91 Oximetry 11/11/19 03:00 Temperature Pulse Rate 69 Pulse Rate [ Left Radial] Pulse Rate [ Right Radial] Respiratory Rate Blood Pressure O2 Sat by Pulse Oximetry General appearance: Present: no acute distress, well-nourished - EENT Eyes: PERRL, EOM intact ENT: hearing intact, clear oral mucosa Ears: bilateral: normal - Neck Neck: supple, normal ROM - Respiratory Respiratory effort: normal Respiratory: bilateral: CTA - Breasts Breasts: normal - Cardiovascular Heart rate: 78 Rhythm: regular Heart Sounds: Present: S1 & S2. Absent: gallop, rub Extremities: pulses intact, No edema, normal color, Full ROM - Gastrointestinal General gastrointestinal: Present: soft, non-tender, non-distended, normal bowel sounds - Genitourinary Female genitourinary: normal - Integumentary Integumentary: clear, warm, dry - Musculoskeletal Musculoskeletal: 1, strength equal bilaterally - Neurologic Neurologic: moves all extremities - Psychiatric Psychiatric: memory intact, appropriate mood/affect, intact judgment & insight - Labs CBC & Chem 7: 11/09/19 05:26 11/11/19 03:56 Labs: Abnormal lab results 11/10/19 11/11/19 Range/Units 13:51 03:56 Sodium 146 H 149 H (137-145) mmol/L Potassium 3.5 L (3.6-5.0) mmol/L Chloride 107.9 H 107.4 H (98-107) mmol/L BUN 49 H 40 H (7-17) mg/dL Calcium 8.1 L 8.3 L (8.4-10.2) mg/dL
--- NOTE | 2019-11-11 08:23 | Progress Note ---
Assessment and Plan 1. Acute kidney injury: Vasomotor KWABENA in the setting of volume depletion. Urine studies and Renal US ordered. BP was low, now improving. D5W w/ K ordered. Monitor renal function. Creatinine is 0.8 from 1.3 from 1.8 from 2.1. Renal prognosis is guarded. Avoid nephrotoxic agents. Meds dosage based on GFR. 2. FEN: Hypernatremia, monitor sodium level closely. Hypomagnesemia, replete mag as needed, monitor. Hypokalemia, D5 w/ K ordered, monitor. Hypophosphatemia, monitor. Monitor lytes and volume status. 3. Encephalopathy, POA. 4. Elevated Transaminases. 5. UTI. On abx. 6. PEG tube malfunction: Plan to replace PEG today. GI following. Subjective Date of service: 11/11/19 Principal diagnosis: Acute Encephalopathy Interval history: Patient was seen and examined at the bedside. Pt is now DNR. PEG tube is supposed to be changed out today. No acute events reported overnight. Objective - Exam Narrative Exam: General appearance: well-developed, cachectic, no distress noted EENT: ATNC, PERRL Neck: neck supple, trachea midline Respiratory: Clear to Ascultation Heart: regular, S1S2, no murmurs Gastrointestinal: normoactive bowel sounds, PEG tube noted, no tenderness, no distension Integumentary: no rash, warm and dry Neurologic: awake, not following any command, no attempt at verbal communication Musculoskeletal: no edema noted - Vital Signs Vital signs: Vital Signs - 12hr 11/10/19 11/10/19 11/11/19 22:00 23:52 03:00 Temperature Pulse Rate 69 69 Pulse Rate [ 63 Left Radial] Pulse Rate [ 63 Right Radial] Respiratory 16 16 Rate Blood Pressure 137/91 O2 Sat by Pulse 91 Oximetry 11/11/19 11/11/19 03:43 08:03 Temperature 97.7 F Pulse Rate 67 Pulse Rate [ Left Radial] Pulse Rate [ Right Radial] Respiratory 16 16 Rate Blood Pressure 118/95 112/87 O2 Sat by Pulse 98 Oximetry - Lab 11/09/19 05:26 11/11/19 03:56 Most recent lab results Calcium 8.3 mg/dL (8.4-10.2) L 11/11/19 03:56 Phosphorus 3.70 mg/dL (2.5-4.5) D 11/11/19 03:56 Magnesium 2.20 mg/dL (1.7-2.3) 11/11/19 03:56 Urine Creatinine 14.8 mg/dL (0.1-20.0) 11/10/19 17:45 Urine Sodium 15 mmol/L 11/10/19 17:45 Medications & Allergies - Medications Allergies/Adverse Reactions: Allergies No Known Allergies Allergy (Verified 03/20/19 13:53) Home Medications: Home Medications Medication Instructions Recorded Confirmed Last Taken Type Nitrofurantoin [place]/M-Cryst 100 mg PO Q12HR #14 capsule 09/13/19 Unknown Rx [Macrobid CAP] Ondansetron [Zofran Odt] 4 mg PO Q8HR PRN #20 tab.rapdis 09/13/19 Unknown Rx Active Medications: Generic Name Dose Route Start Last Admin Trade Name Freq PRN Reason Stop Dose Admin Acetaminophen 650 mg 11/08/19 22:18 Tylenol PO Q4H PRN Pain MILD(1-3)/Fever >100.5/[place] Famotidine 10 mg 11/08/19 23:00 11/10/19 21:05 Pepcid IV 10 mg BID ANIYAH Administration Heparin Sodium (Porcine) 5,000 unit 11/09/19 12:00 11/10/19 21:05 Heparin SUB-Q 5,000 unit Q12HR ANIYAH Administration Hydromorphone HCl 0.5 mg 11/08/19 22:19 11/08/19 22:33 Dilaudid IV 0.5 mg Q3H PRN Administration Pain , Severe (7-10) Ceftriaxone Sodium 1 gm in 50 mls @ 100 mls/hr 11/09/19 10:00 11/10/19 09:11 Rocephin/Ns 1 Gm/50 Ml IV 11/15/19 10:29 100 mls/hr Q24HR ANIYAH Administration Protocol Morphine Sulfate 2 mg 11/08/19 22:19 11/09/19 04:33 Morphine IV 2 mg Q4H PRN Administration Pain, Moderate (4-6) Ondansetron HCl 4 mg 11/08/19 22:18 Zofran IV Q8H PRN Nausea And Vomiting Sodium Chloride 10 ml 11/09/19 10:00 11/10/19 21:05 Sodium Chloride Flush Syringe 10 Ml IV 10 ml BID ANIYAH Administration Sodium Chloride 10 ml 11/08/19 22:18 Sodium Chloride Flush Syringe 10 Ml IV PRN PRN LINE FLUSH
[2019-11-11] MEDS: POTASSIUM CHLORIDE 40 MEQ in DEXTROSE 5% IN WATER 1,000 ML IV SCH ×2 (10:06→23:19)
[2019-11-11] MEDS: HEPARIN 5,000 UNIT/1 ML VIAL SUB-Q SCH ×2 (10:07→21:24)
[2019-11-11] MEDS: cefTRIAXone/NS 1 GM/50 ML 1 GM/50 ML BAG IV SCH (10:07)
[2019-11-11] MEDS: FAMOTIDINE 20 MG/2 ML INJ IV SCH ×2 (10:07→21:24)
--- NOTE | 2019-11-11 14:40 | Progress Note ---
Assessment and Plan - Patient Problems (1) KWABENA (acute kidney injury) Current Visit: Yes Status: Acute Plan to address problem: Sec to ATN IV D5W for now Nephrology consult appreciated Creatinine near base line (2) Acute cystitis Current Visit: Yes Status: Acute Plan to address problem: IV Rocephin for now (3) Hypernatremia Current Visit: Yes Status: Acute Plan to address problem: IV D5W for now Improved Near baseline (4) Advance care planning Current Visit: Yes Status: Acute Plan to address problem: Family agreed for DNR (5) Hyperosmolality syndrome Current Visit: Yes Status: Acute Plan to address problem: IV D5W for now Check osmolarity (6) DVT prophylaxis Current Visit: Yes Status: Acute Plan to address problem: On Heparin and GI prophylaxis (7) Acute metabolic encephalopathy Current Visit: Yes Status: Acute Plan to address problem: Secondary to severe dehydration UTI and Hypernatremia Subjective Date of service: 11/11/19 Principal diagnosis: Acute Encephalopathy Interval history: 53-year-old Citizen Of [place] female with a past medical history of aneurysm with resulting encephalopathy seizures and recent failure to thrive who is presenting with altered mental status. Patient was found in hotel room. Paramedics not sure who called paramedics. Patient was unresponsive but was moving all extremities but not with any purpose. Patient is unable to speak at this time. ED physician spoke with the patient sister who states that 3 days ago she spoke to her on the phone and patient did not sound well but was able to speak. Family's been encouraging her to eat and drink however this they do not believe that she has had anything to eat or drink in several days. Mopre alert today Objective - Constitutional Vitals: Vital Signs - 12hr 11/11/19 11/11/19 11/11/19 03:00 03:43 08:03 Temperature 97.7 F Pulse Rate 69 67 Respiratory 16 16 Rate Blood Pressure 118/95 112/87 O2 Sat by Pulse 98 Oximetry 11/11/19 11/11/19 08:50 12:38 Temperature 97.6 F Pulse Rate 88 Respiratory 16 Rate Blood Pressure 133/96 O2 Sat by Pulse 98 96 Oximetry - Labs CBC & Chem 7: 11/09/19 05:26 11/11/19 03:56 Labs: Abnormal lab results 11/10/19 11/11/19 Range/Units 13:51 03:56 Sodium 146 H 149 H (137-145) mmol/L Potassium 3.5 L (3.6-5.0) mmol/L Chloride 107.9 H 107.4 H (98-107) mmol/L BUN 49 H 40 H (7-17) mg/dL Calcium 8.1 L 8.3 L (8.4-10.2) mg/dL
--- NOTE | 2019-11-11 19:50 | Gastroenterology Progress Note ---
Assessment and Plan - Patient Problems (1) Malfunction of gastrostomy tube Current Visit: Yes Status: Acute (2) Neurogenic dysphagia Current Visit: Yes Status: Acute Plan to address problem: - No use of PEG tube per family in several months (patient taking all per mouth). - Encephalopathy much improved. - If passes swallow eval, will consider pull, rather than replace, PEG tube as it is not being cared for or used based on appearance. Subjective Date of service: 11/11/19 Principal diagnosis: Neurogenic Dyphagia Interval history: The patient is much more alert today. She voices she is thirsty. No N/V/Abdominal pain. Objective - Constitutional Vitals: Temp Pulse Resp BP Pulse Ox 97.4 F L 71 20 122/89 94 11/11/19 19:11/11/19 19:22 11/11/19 19:11/11/19 19:11/11/19 19:22 General appearance: no acute distress - Respiratory Respiratory effort: normal Respiratory: bilateral: CTA - Cardiovascular Rhythm: regular Heart Sounds: Present: S1 & S2 - Gastrointestinal General gastrointestinal: Present: soft, non-tender, non-distended - Neurologic Neurological: oriented to person, other (?tardive dyskinesia) - Labs CBC & Chem 7: 11/09/19 05:26 11/11/19 03:56 Labs: Laboratory Results - last 24 hr 11/11/19 03:56 Sodium 149 H Potassium 3.5 L Chloride 107.4 H Carbon Dioxide 27 Anion Gap 18 BUN 40 H Creatinine 0.8 Estimated GFR > 60 BUN/Creatinine Ratio 50 Glucose 82 Calcium 8.3 L Phosphorus 3.70 D Magnesium 2.20
[2019-11-12] MEDS ORDERED: hydrALAZINE 20 MG/1 ML INJ IV ONE (04:10)
[2019-11-12 04:53] LABS: BUN/Creatinine Ratio 45; Blood Urea Nitrogen 27 mg/dL (7-17); Calcium 8.7 mg/dL (8.4-10.2); Hemolysis Index 18
--- NOTE | 2019-11-12 08:07 | Progress Note ---
Assessment and Plan 1. Acute kidney injury: Vasomotor KWABENA in the setting of volume depletion. Urine studies and Renal US ordered. Continue IV fluids. Monitor renal function. Creatinine is 0.6 from 0.8 from 1.3 from 1.8 from 2.1. Renal prognosis is guarded. Avoid nephrotoxic agents. Meds dosage based on GFR. 2. FEN: Hypernatremia, monitor sodium level closely, currently 147. Hypomagnesemia, replete mag as needed, monitor. Hypokalemia, D5 w/ K, monitor. Hypophosphatemia, replete phos, monitor. Monitor lytes and volume status. 3. Encephalopathy, POA. 4. Elevated Transaminases. 5. UTI. On abx. 6. PEG tube malfunction / dysphagia: Plan was to replace PEG. Per family, pt was able to eat prior to admission. Bedside swallow eval planned today and plan pending based on those results. Continue IV fluids. GI following. Subjective Date of service: 11/12/19 Principal diagnosis: Neurogenic Dyphagia Interval history: Patient was seen and examined at the bedside. Pt is now DNR. No acute events reported overnight. Objective - Exam Narrative Exam: General appearance: well-developed, cachectic, no distress noted EENT: ATNC, PERRL Neck: neck supple, trachea midline Respiratory: Clear to Ascultation Heart: regular, S1S2, no murmurs Gastrointestinal: normoactive bowel sounds, PEG tube noted, no tenderness, no distension Integumentary: no rash, warm and dry Neurologic: awake, not following any command, no attempt at verbal communication Musculoskeletal: no edema noted - Vital Signs Vital signs: Vital Signs - 12hr 11/11/19 11/11/19 11/12/19 23:32 23:33 00:21 Temperature 98.3 F Pulse Rate 74 75 Respiratory 20 Rate Blood Pressure Blood Pressure 153/107 [Left] O2 Sat by Pulse 93 100 Oximetry 11/12/19 11/12/19 11/12/19 03:49 04:35 07:43 Temperature 98.2 F Pulse Rate 72 71 78 Respiratory 18 Rate Blood Pressure 154/111 122/89 Blood Pressure [Left] O2 Sat by Pulse 96 100 Oximetry 11/12/19 07:45 Temperature Pulse Rate 75 Respiratory Rate Blood Pressure Blood Pressure [Left] O2 Sat by Pulse 98 Oximetry - Lab 11/09/19 05:26 05/27/20 04:01 Most recent lab results Calcium 8.7 mg/dL (8.4-10.2) 11/12/19 04:01 Phosphorus 2.30 mg/dL (2.5-4.5) L D 11/12/19 04:01 Magnesium 2.20 mg/dL (1.7-2.3) 11/12/19 04:01 Urine Creatinine 14.8 mg/dL (0.1-20.0) 11/10/19 17:45 Urine Sodium 15 mmol/L 11/10/19 17:45 Medications & Allergies - Medications Allergies/Adverse Reactions: Allergies No Known Allergies Allergy (Verified 03/20/19 13:53) Home Medications: Home Medications Medication Instructions Recorded Confirmed Last Taken Type Nitrofurantoin [place]/M-Cryst 100 mg PO Q12HR #14 capsule 09/13/19 11/11/19 Unknown Rx [Macrobid CAP] Ondansetron [Zofran Odt] 4 mg PO Q8HR PRN #20 tab.rapdis 09/13/19 11/11/19 Unknown Rx Active Medications: Generic Name Dose Route Start Last Admin Trade Name Freq PRN Reason Stop Dose Admin Acetaminophen 650 mg 11/08/19 22:18 Tylenol PO Q4H PRN Pain MILD(1-3)/Fever >100.5/MEMBRENO Famotidine 10 mg 11/08/19 23:00 11/11/19 21:24 Pepcid IV 10 mg BID ANIYAH Administration Heparin Sodium (Porcine) 5,000 unit 11/09/19 12:00 11/11/19 21:24 Heparin SUB-Q 5,000 unit Q12HR ANIYAH Administration Hydromorphone HCl 0.5 mg 11/08/19 22:19 11/08/19 22:33 Dilaudid IV 0.5 mg Q3H PRN Administration Pain , Severe (7-10) Ceftriaxone Sodium 1 gm in 50 mls @ 100 mls/hr 11/09/19 10:00 11/11/19 10:07 Rocephin/Ns 1 Gm/50 Ml IV 11/15/19 10:29 100 mls/hr Q24HR ANIYAH Administration Protocol Potassium Chloride 40 meq/ 1,020 mls @ 75 mls/hr 11/11/19 10:00 11/11/19 23:19 Dextrose IV 75 mls/hr DIRECT ANIYAH Administration Potassium Phosphate 30 mmol/ 510 mls @ 85 mls/hr 11/12/19 08:06 Sodium Chloride IV 11/12/19 14:05 ONCE ONE Morphine Sulfate 2 mg 11/08/19 22:19 11/09/19 04:33 Morphine IV 2 mg Q4H PRN Administration Pain, Moderate (4-6) Ondansetron HCl 4 mg 11/08/19 22:18 Zofran IV Q8H PRN Nausea And Vomiting Sodium Chloride 10 ml 11/09/19 10:00 11/11/19 21:24 Sodium Chloride Flush Syringe 10 Ml IV 10 ml BID ANIYAH Administration Sodium Chloride 10 ml 11/08/19 22:18 Sodium Chloride Flush Syringe 10 Ml IV PRN PRN LINE FLUSH
[2019-11-12] MEDS ORDERED: POTASSIUM PHOSPHATE 30 MMOL in SODIUM CHLORIDE 0.9% 500 ML 500 ML IV ONE (09:00)
[2019-11-12] MEDS: FAMOTIDINE 20 MG/2 ML INJ IV SCH ×2 (10:32→22:56)
[2019-11-12] MEDS: HEPARIN 5,000 UNIT/1 ML VIAL SUB-Q SCH ×2 (10:32→22:57)
[2019-11-12] MEDS: cefTRIAXone/NS 1 GM/50 ML 1 GM/50 ML BAG IV SCH (10:33)
--- NOTE | 2019-11-12 12:02 | Gastroenterology Progress Note ---
Assessment and Plan - Patient Problems (1) Malfunction of gastrostomy tube Current Visit: Yes Status: Acute Plan to address problem: - Given mental status, patient will likely require PEG tube feeds for some time. - PEG replaced today, and may use immediately. - Will sign off; please call if needed. (2) Neurogenic dysphagia Current Visit: Yes Status: Acute Plan to address problem: - If patient passes ST eval, OK to use both PEG and oral feeds, but given severe protein calorie malnutrition, would recommend at least some supplements via the PEG. (3) Severe protein-calorie malnutrition Current Visit: Yes Status: Acute Plan to address problem: - Current BMI < 12. Subjective Date of service: 11/12/19 Principal diagnosis: Neurogenic Dyphagia Interval history: The patient is less alert today, and is nonverbal. She will follow some commands. Her PO intake is very poor, and ST eval is pending. Objective - Constitutional Vitals: Temp Pulse Resp BP Pulse Ox 98.2 F 75 18 122/89 98 11/12/19 07:43 11/12/19 07:45 11/12/19 11:48 11/12/19 07:43 11/12/19 07:45 General appearance: no acute distress - EENT Eyes: PERRL ENT: hearing intact - Neck Neck: supple, normal ROM - Respiratory Respiratory effort: normal Respiratory: bilateral: CTA - Cardiovascular Rhythm: regular Heart Sounds: Present: S1 & S2 - Gastrointestinal General gastrointestinal: Present: soft, non-tender, non-distended, other (Previous bumper-type PEG tube removed in 1 piece. New 18Fr replacement PEG marisel juventino via gastrocutaneous fistula and bumper fixed at 3.5cm. Good flow/flush of gastric secretions noted.) - Labs CBC & Chem 7: 11/09/19 05:26 11/12/19 04:01 Labs: Laboratory Results - last 24 hr 11/12/19 04:01 Sodium 147 H Potassium 4.0 Chloride 107.7 H Carbon Dioxide 25 Anion Gap 18 BUN 27 H Creatinine 0.6 L Estimated GFR > 60 BUN/Creatinine Ratio 45 Glucose 111 H Calcium 8.7 Phosphorus 2.30 L D Magnesium 2.20
[2019-11-13] MEDS: POTASSIUM CHLORIDE 40 MEQ in DEXTROSE 5% IN WATER 1,000 ML IV SCH ×2 (00:41→15:00)
[2019-11-13] MEDS ORDERED: hydrALAZINE 20 MG/1 ML INJ IV ONE (01:08)
[2019-11-13 06:54] LABS: BUN/Creatinine Ratio 30; Blood Urea Nitrogen 15 mg/dL (7-17); Calcium 8.9 mg/dL (8.4-10.2); Hemolysis Index 51
--- NOTE | 2019-11-13 07:09 | Progress Note ---
Assessment and Plan - Patient Problems (1) Acute metabolic encephalopathy Current Visit: Yes Status: Acute (2) KWABENA (acute kidney injury) Current Visit: Yes Status: Acute Plan to address problem: Sec to ATN IV D5W for now Nephrology consult appreciated Creatinine near base line--27/0.6 (3) Acute cystitis Current Visit: Yes Status: Acute Plan to address problem: IV Rocephin for now (4) Hypernatremia Current Visit: Yes Status: Acute Plan to address problem: IV D5W for now Improved Near baseline--147 today (5) Advance care planning Current Visit: Yes Status: Acute Plan to address problem: Family agreed for DNR (6) Hyperosmolality syndrome Current Visit: Yes Status: Acute Plan to address problem: IV D5W for now Check osmolarity (7) DVT prophylaxis Current Visit: Yes Status: Acute Plan to address problem: On Heparin and GI prophylaxis (8) Discharge planning issues Current Visit: Yes Status: Acute Plan to address problem: Patient to be discharged to [place] Needs COVID test to be negative Discussed with Case manger Subjective Date of service: 11/12/19 Principal diagnosis: Neurogenic Dyphagia Interval history: Day # 5 53-year-old [place] female with a past medical history of aneurysm with resulting encephalopathy seizures and recent failure to thrive who is presenting with altered mental status. Patient was found in hotel room. Paramedics not sure who called paramedics. Patient was unresponsive but was moving all extremities but not with any purpose. Patient is unable to speak at this time. ED physician spoke with the patient sister who states that 3 days ago she spoke to her on the phone and patient did not sound well but was able to speak. Family's been encouraging her to eat and drink however this they do not believe that she has had anything to eat or drink in several days. Mopre alert today Able to eat Cachectic Objective - Constitutional Vitals: Vital Signs - 12hr 11/12/19 11/12/19 11/13/19 20:35 21:42 00:43 Temperature 97.7 F 97.9 F Pulse Rate 63 64 66 Respiratory 20 20 Rate Blood Pressure 132/101 Blood Pressure 148/110 [Left] O2 Sat by Pulse 100 100 Oximetry 11/13/19 03:54 Temperature 98.2 F Pulse Rate 79 Respiratory 18 Rate Blood Pressure 134/106 Blood Pressure [Left] O2 Sat by Pulse 100 Oximetry General appearance: Present: no acute distress, well-nourished - EENT Eyes: PERRL, EOM intact ENT: hearing intact, clear oral mucosa Ears: bilateral: normal - Neck Neck: supple, normal ROM - Respiratory Respiratory effort: normal Respiratory: bilateral: CTA - Breasts Breasts: normal - Cardiovascular Heart rate: 78 Rhythm: regular Heart Sounds: Present: S1 & S2. Absent: gallop, rub Extremities: pulses intact, No edema, normal color, Full ROM - Gastrointestinal General gastrointestinal: Present: soft, non-tender, non-distended, normal bowel sounds, other (G tube in place.Not being used) - Genitourinary Female genitourinary: normal - Integumentary Integumentary: clear, warm, dry - Musculoskeletal Musculoskeletal: 1, strength equal bilaterally - Neurologic Neurologic: moves all extremities - Psychiatric Psychiatric: memory intact, appropriate mood/affect, intact judgment & insight - Allied health notes Allied health notes reviewed: nursing, case management - Labs CBC & Chem 7: 11/09/19 05:26 11/13/19 04:44 Labs: Abnormal lab results 11/13/19 Range/Units 04:44 Sodium 146 H (137-145) mmol/L Chloride 109.2 H (98-107) mmol/L Creatinine 0.5 L (0.7-1.2) mg/dL Glucose 114 H (65-100) mg/dL
--- NOTE | 2019-11-13 10:12 | Progress Note ---
Assessment and Plan Assessment and plan: Toxic metabolic encephalopathy. Continue to treat underlying causes. Etiology secondary to acute kidney injury/hypernatremia/UTI. Acute kidney injury. Etiology secondary to ATN. Continue IV fluid hydration per nephrology. Acute cystitis. Continue IV antibiotics. Blood and urine cultures were found to be negative. Hypernatremia. Improved. DNR. Disposition. Await placement History Interval history: No new issues overnight. Hospitalist Physical - Constitutional Vitals: Temp Pulse Resp BP Pulse Ox 98.4 F 79 18 115/87 100 11/13/19 07:11 11/13/19 03:54 11/13/19 07:11 11/13/19 07:11 11/13/19 03:54 General appearance: Present: no acute distress, well-nourished - EENT Eyes: Present: PERRL, EOM intact ENT: hearing intact, clear oral mucosa, dentition normal - Neck Neck: Present: supple, normal ROM - Respiratory Respiratory effort: normal Respiratory: bilateral: CTA - Cardiovascular Rhythm: regular Heart Sounds: Present: S1 & S2. Absent: gallop, rub - Extremities Extremities: no ischemia, No edema, Full ROM - Abdominal General gastrointestinal: soft, non-tender, non-distended, normal bowel sounds - Integumentary Integumentary: Present: clear, warm, dry - Neurologic Neurologic: CNII-XII intact, moves all extremities Results - Labs CBC & Chem 7: 11/09/19 05:26 11/13/19 04:44 Labs: Laboratory Last Values WBC 7.1 K/mm3 (4.5-11.0) 11/09/19 05: RBC 4.55 M/mm3 (3.65-5.03) 11/09/19 05:26 Hgb 10.4 gm/dl (10.1-14.3) 11/09/19 05:26 Hct 34.1 % (30.3-42.9) D 11/09/19 05:26 MCV 75 fl (79-97) L 11/09/19 05:26 MCH 23 pg (28-32) L 11/09/19 05:26 MCHC 30 % (30-34) 11/09/19 05:26 RDW 16.4 % (13.2-15.2) H 11/09/19 05:26 Plt Count 117 K/mm3 (140-440) L 11/09/19 05:26 Lymph % (Auto) 6.0 % (13.4-35.0) L 11/09/19 05:26 [place] % (Auto) 7.0 % (0.0-7.3) 11/09/19 05:26 Eos % (Auto) 0.1 % (0.0-4.3) 11/09/19 05:26 Baso % (Auto) 0.1 % (0.0-1.8) 11/09/19 05:26 Lymph # 0.4 K/mm3 (1.2-5.4) L 11/09/19 05:26 [place] # 0.5 K/mm3 (0.0-0.8) 11/09/19 05:26 Eos # 0.0 K/mm3 (0.0-0.4) 11/09/19 05:26 Baso # 0.0 K/mm3 (0.0-0.1) 11/09/19 05:26 Seg Neutrophils % 86.8 % (40.0-70.0) H 11/09/19 05:26 Seg Neutrophils # 6.2 K/mm3 (1.8-7.7) 11/09/19 05:26 PT 12.3 Sec. (12.2-14.9) 11/08/19 17:45 INR 0.93 (0.87-1.13) 11/08/19 17:45 APTT 25.5 Sec. (24.2-36.6) 11/08/19 17:45 Sodium 146 mmol/L (137-145) H 11/13/19 04:44 Potassium 4.6 mmol/L (3.6-5.0) 11/13/19 04:44 Chloride 109.2 mmol/L (98-107) H 11/13/19 04:44 Carbon Dioxide 25 mmol/L (22-30) 11/13/19 04:44 Anion Gap 16 mmol/L 11/13/19 04:44 BUN 15 mg/dL (7-17) 11/13/19 04:44 Creatinine 0.5 mg/dL (0.7-1.2) L 11/13/19 04:44 Estimated GFR > 60 ml/min 11/13/19 04:44 BUN/Creatinine Ratio 30 % 05/28/20 04:44 Glucose 114 mg/dL (65-100) H 11/13/19 04:44 POC Glucose 95 (70-105) 11/08/19 17:14 Lactic Acid 1.60 mmol/L (0.7-2.0) 11/08/19 20:33 Calcium 8.9 mg/dL (8.4-10.2) 11/13/19 04:44 Phosphorus 3.00 mg/dL (2.5-4.5) D 11/13/19 04:44 Magnesium 2.20 mg/dL (1.7-2.3) 11/12/19 04:01 Total Bilirubin 0.30 mg/dL (0.1-1.2) 11/10/19 04:22 AST 39 units/L (5-40) 11/10/19 04:22 ALT 38 units/L (7-56) 11/10/19 04:22 Alkaline Phosphatase 106 units/L (35-129) 11/10/19 04:22 Total Protein 4.8 g/dL (6.3-8.2) L 11/10/19 04:22 Albumin 2.6 g/dL (3.9-5) L 11/10/19 04:22 Albumin/Globulin Ratio 1.2 % 11/10/19 04:22 Urine Color Yellow (Yellow) 11/08/19 17:51 Urine Turbidity Clear (Clear) 11/08/19 17:51 Urine pH 7.0 (5.0-7.0) 11/08/19 17:51 Ur Specific [place] 1.019 (1.003-1.030) 11/08/19 17:51 Urine Protein <15 mg/dl mg/dL (Negative) 11/08/19 17:51 Urine Glucose (UA) Neg mg/dL (Negative) 11/08/19 17:51 Urine Ketones Neg mg/dL (Negative) 11/08/19 17:51 Urine Blood Neg (Negative) 11/08/19 17:51 Urine Nitrite Neg (Negative) 11/08/19 17:51 Urine Bilirubin Neg (Negative) 11/08/19 17:51 Urine Urobilinogen 4.0 mg/dL (<2.0) 11/08/19 17:51 Ur Leukocyte Esterase Neg (Negative) 11/08/19 17:51 Urine WBC (Auto) 40.0 /HPF (0.0-6.0) H 11/08/19 17:51 Urine RBC (Auto) > 182.0 /HPF (0.0-6.0) 11/08/19 17:51 U Epithel Cells (Auto) 1.0 /HPF (0-13.0) 11/08/19 17:51 Urine Bacteria (Auto) 2+ /HPF (Negative) 11/08/19 17:51 Urine Mucus 3+ /HPF 11/08/19 17:51 Urine Creatinine 14.8 mg/dL (0.1-20.0) 11/10/19 17:45 Urine Sodium 15 mmol/L 11/10/19 17:45 Coronavirus (PCR) Negative (Negative) 11/12/19 Unknown Microbiology: Microbiology 11/08/19 18:10 Peripheral/Venous Blood Culture - Preliminary NO GROWTH AFTER 4 DAYS 11/08/19 18:10 Peripheral/Venous Blood Culture - Preliminary NO GROWTH AFTER 4 DAYS Do/IV: Voiding Method Incontinent IV Catheter Type [Left Leg] Intra-osseous Active Medications - Current Medications Current Medications: Generic Name Dose Route Start Last Admin Trade Name Freq PRN Reason Stop Dose Admin Acetaminophen 650 mg 11/08/19 22:18 Tylenol PO Q4H PRN Pain MILD(1-3)/Fever >100.5/MEMBRENO Famotidine 10 mg 11/08/19 23:00 11/12/19 22:56 Pepcid IV 10 mg BID ANIYAH Administration Heparin Sodium (Porcine) 5,000 unit 11/09/19 12:00 11/12/19 22:57 Heparin SUB-Q 5,000 unit Q12HR ANIYAH Administration Hydromorphone HCl 0.5 mg 11/08/19 22:19 11/08/19 22:33 Dilaudid IV 0.5 mg Q3H PRN Administration Pain , Severe (7-10) Ceftriaxone Sodium 1 gm in 50 mls @ 100 mls/hr 11/09/19 10:00 11/12/19 10:33 Rocephin/Ns 1 Gm/50 Ml IV 11/15/19 10:29 100 mls/hr Q24HR ANIYAH Administration Protocol Potassium Chloride 40 meq/ 1,020 mls @ 75 mls/hr 11/11/19 10:00 11/13/19 00:41 Dextrose IV 75 mls/hr DIRECT ANIYAH Administration Morphine Sulfate 2 mg 11/08/19 22:19 11/09/19 04:33 Morphine IV 2 mg Q4H PRN Administration Pain, Moderate (4-6) Multivitamins 5 ml 11/13/19 10:00 Centrum Liq FEEDTUBE QDAY ANIYAH Ondansetron HCl 4 mg 11/08/19 22:18 Zofran IV Q8H PRN Nausea And Vomiting Sodium Chloride 10 ml 11/09/19 10:00 11/12/19 22:57 Sodium Chloride Flush Syringe 10 Ml IV 10 ml BID ANIYAH Administration Sodium Chloride 10 ml 11/08/19 22:18 Sodium Chloride Flush Syringe 10 Ml IV PRN PRN LINE FLUSH Nutrition/Malnutrition Assess - Dietary Evaluation Nutrition/Malnutrition Findings: Nutrition Notes Start: 11/10/19 10:39 Freq: Status: Active Protocol: Document 11/12/19 11:22 LM (Rec: 11/12/19 11:26 LM [email or web address]) Nutrition Notes Initial or Follow up Brief Note Current Diagnosis Acute Kidney Injury,Decubitus( Pressure Ulcer),Hypertension, Stroke Other Pertinent Diagnosis AMS, dehydration, PEG malfunction Current Diet NPO Subjective/Other Information Consult for malnutrition. Already following pt. Per MD report pt has malfunctioning PEG but was eating [employer]. TERRA COTTA MASON consulted. Nutrition Intervention Follow-Up By: 11/13/19 Additional Comments F/U for TERRA COTTA MASON recommendations/ POC
--- NOTE | 2019-11-13 10:17 | Progress Note ---
Assessment and Plan 1. Acute kidney injury: Vasomotor KWABENA in the setting of volume depletion. Renal US; unable to visualize L kidney due to positioning. Monitor renal function. Creatinine is 0.5 from 0.8 from 1.3 from 1.8 from 2.1. Avoid nephrotoxic agents. Meds dosage based on GFR. 2. FEN: Hypernatremia, currently 146. Hypomagnesemia, improved. Hypokalemia, improved. Hypophosphatemia, improved. 3. Encephalopathy, POA. 4. Elevated Transaminases. 5. UTI. On abx. 6. PEG tube malfunction / dysphagia: S/p PEG exchange. Recommend f/u with us in about 2 weeks. Subjective Patient was seen and examined at the bedside. No acute events reported overnight. Objective Exam: General appearance: well-developed, cachectic, no distress noted HEENT: ATNC, LYLE Neck: trachea midline Respiratory: Clear to Ascultation Heart: regular, S1S2, no murmur Gastrointestinal: soft, normoactive bowel sounds, PEG tube noted, no tenderness, not distended Integumentary: no rash, warm and dry Neurologic: awake, able to tell her name, moving R UE Musculoskeletal: no edema noted Subjective Date of service: 11/13/19 Principal diagnosis: Neurogenic Dyphagia Objective - Vital Signs Vital signs: Vital Signs - 12hr 11/13/19 11/13/19 11/13/19 00:43 03:54 07:11 Temperature 97.9 F 98.2 F 98.4 F Pulse Rate 66 79 Respiratory 20 18 18 Rate Blood Pressure 134/106 115/87 Blood Pressure 148/110 [Left] O2 Sat by Pulse 100 100 Oximetry - Lab 11/09/19 05:26 11/13/19 04:44 Most recent lab results Calcium 8.9 mg/dL (8.4-10.2) 11/13/19 04:44 Phosphorus 3.00 mg/dL (2.5-4.5) D 11/13/19 04:44 Magnesium 2.20 mg/dL (1.7-2.3) 11/12/19 04:01 Urine Creatinine 14.8 mg/dL (0.1-20.0) 11/10/19 17:45 Urine Sodium 15 mmol/L 11/10/19 17:45 Medications & Allergies - Medications Allergies/Adverse Reactions: Allergies No Known Allergies Allergy (Verified 03/20/19 13:53) Home Medications: Home Medications Medication Instructions Recorded Confirmed Last Taken Type Ondansetron [Zofran ODT TAB] 4 mg PO Q8HR PRN #20 tab.rapdis 09/13/19 11/11/19 Unknown Rx Acetaminophen [Acetaminophen TAB] 650 mg PO Q4H PRN tablet 11/13/19 Unknown Rx Multivitamins Liq [Multiple 5 ml FEEDTUBE QDAY oral.liqd 11/13/19 Unknown Rx Vitamin Liq (Theragran)] Active Medications: Generic Name Dose Route Start Last Admin Trade Name Freq PRN Reason Stop Dose Admin Acetaminophen 650 mg 11/08/19 22:18 Tylenol PO Q4H PRN Pain MILD(1-3)/Fever >100.5/MEMBRENO Famotidine 10 mg 11/08/19 23:00 11/12/19 22:56 Pepcid IV 10 mg BID ANIYAH Administration Heparin Sodium (Porcine) 5,000 unit 11/09/19 12:00 11/12/19 22:57 Heparin SUB-Q 5,000 unit Q12HR ANIYAH Administration Hydromorphone HCl 0.5 mg 11/08/19 22:19 11/08/19 22:33 Dilaudid IV 0.5 mg Q3H PRN Administration Pain , Severe (7-10) Ceftriaxone Sodium 1 gm in 50 mls @ 100 mls/hr 11/09/19 10:00 11/12/19 10:33 Rocephin/Ns 1 Gm/50 Ml IV 11/15/19 10:29 100 mls/hr Q24HR ANIYAH Administration Protocol Potassium Chloride 40 meq/ 1,020 mls @ 75 mls/hr 11/11/19 10:00 11/13/19 00:41 Dextrose IV 75 mls/hr DIRECT ANIYAH Administration Morphine Sulfate 2 mg 11/08/19 22:19 11/09/19 04:33 Morphine IV 2 mg Q4H PRN Administration Pain, Moderate (4-6) Multivitamins 5 ml 11/13/19 10:00 Centrum Liq FEEDTUBE QDAY ANIYAH Ondansetron HCl 4 mg 11/08/19 22:18 Zofran IV Q8H PRN Nausea And Vomiting Sodium Chloride 10 ml 11/09/19 10:00 11/12/19 22:57 Sodium Chloride Flush Syringe 10 Ml IV 10 ml BID ANIYAH Administration Sodium Chloride 10 ml 11/08/19 22:18 Sodium Chloride Flush Syringe 10 Ml IV PRN PRN LINE FLUSH
[2019-11-13] MEDS: FAMOTIDINE 20 MG/2 ML INJ IV SCH ×2 (10:20→21:49)
[2019-11-13] MEDS: MULTIVITAMINS 5 ML ORAL LIQUID FEEDTUBE SCH (10:20)
[2019-11-13] MEDS: cefTRIAXone/NS 1 GM/50 ML 1 GM/50 ML BAG IV SCH (10:21)
[2019-11-13] MEDS: HEPARIN 5,000 UNIT/1 ML VIAL SUB-Q SCH ×2 (10:22→21:49)
--- NOTE | 2019-11-13 11:18 | Discharge Summary ---
Providers - Providers Date of Admission: 11/08/19 19:05 Date of discharge: 11/13/19 Attending physician: SCARLETT PALACIO 11/08/19 22:19 Consult to Physician [CONS] Routine Comment: Consulting Provider: MÓNICA ONEIL Physician Instructions: Reason For Exam: Acute kidney injury 11/10/19 04:14 Consult to Physician [CONS] Routine Comment: Consulting Provider: VERNON SPENCER Physician Instructions: Reason For Exam: PEg tube malfunction 11/11/19 10:49 Physical Therapy Evaluation and Treat [CONS] Routine Comment: Reason For Exam: PT evaluation and treatment Mode of Transport?: Wheelchair Assistive devices?: Yes If so list: Walker Wheelchair Referring MD: PUNEET GARCIA 11/11/19 19:44 Speech Therapy Evaluation and Treat [CONS] Routine Reason For Exam: CVA; hx of PEG but eating by mouth x several month 11/12/19 11:05 Consult to Dietitian/Nutrition [CONS] Routine Physician Instructions: Reason For Exam: Reason for Consult: Malnutrition [facility] Reason for admission: encephalopathy Condition: Stable Disposition: DC/[place]-03 [facility] Time spent for discharge: 32 - Discharge Diagnoses (1) KWABENA (acute kidney injury) Status: Acute (2) Acute cystitis Status: Acute (3) Acute metabolic encephalopathy Status: Acute (4) Hypernatremia Status: Acute Core Measure Documentation - Palliative Care Palliative Care/ Comfort Measures: Not Applicable - Core Measures Any of the following diagnoses?: none Exam - Constitutional Vitals: Temp Pulse Resp BP Pulse Ox 98.4 F 79 18 115/87 100 11/13/19 07:11 11/13/19 03:54 11/13/19 07:11 11/13/19 07:11 11/13/19 03:54 General appearance: Present: no acute distress, well-nourished - EENT Eyes: Present: PERRL ENT: hearing intact, clear oral mucosa - Neck Neck: Present: supple, normal ROM - Respiratory Respiratory effort: normal Respiratory: bilateral: CTA - Cardiovascular Heart Sounds: Present: S1 & S2. Absent: rub, click - Extremities Extremities: pulses symmetrical, No edema Peripheral Pulses: within normal limits - Abdominal General gastrointestinal: Present: soft, non-tender, non-distended, normal bowel sounds Female genitourinary: Present: normal - Integumentary Integumentary: Present: clear, warm, dry - Musculoskeletal Musculoskeletal: gait normal, strength equal bilaterally - Psychiatric Psychiatric: appropriate mood/affect, intact judgment & insight - Neurologic Neurologic: CNII-XII intact, moves all extremities Plan Activity: advance as tolerated Weight Bearing Status: Weight Bear as Tolerated Follow up with: PATTI BECK MD [Primary Care Provider] - 7 Days
[2019-11-14] MEDS: FAMOTIDINE 20 MG/2 ML INJ IV SCH (09:48)
[2019-11-14] MEDS: cefTRIAXone/NS 1 GM/50 ML 1 GM/50 ML BAG IV SCH (09:48)
[2019-11-14] MEDS: MULTIVITAMINS 5 ML ORAL LIQUID FEEDTUBE SCH (09:48)
[2019-11-14] MEDS: HEPARIN 5,000 UNIT/1 ML VIAL SUB-Q SCH (09:48)
--- NOTE | 2019-11-14 10:27 | Progress Note ---
Assessment and Plan 1. Acute kidney injury: Vasomotor KWABENA in the setting of volume depletion. Renal US; unable to visualize L kidney due to positioning. Monitor renal function. Creatinine is 0.5 from 0.8 from 1.3 from 1.8 from 2.1. Avoid nephrotoxic agents. Meds dosage based on GFR. No labs from today. 2. FEN: Hypernatremia, currently 146. Hypomagnesemia, improved. Hypokalemia, improved. Hypophosphatemia, improved. Recommend PEG water flushes. 3. Encephalopathy, POA. 4. Elevated Transaminases. 5. UTI. On abx. 6. PEG tube malfunction / dysphagia: S/p PEG exchange. Recommend f/u with us in about 2 weeks. Subjective Patient was seen and examined at the bedside. No acute events reported overnight. Waiting to transfer to [place]. Objective Exam: General appearance: well-developed, cachectic, no distress noted, mittens noted HEENT: ATNC, LYLE Neck: trachea midline Respiratory: Clear to Ascultation Heart: regular, S1S2, no murmur Gastrointestinal: soft, normoactive bowel sounds, PEG tube noted, no tenderness, not distended Integumentary: no rash, warm and dry Neurologic: awake, able to tell her name, moving R UE Musculoskeletal: no edema noted Subjective Date of service: 11/14/19 Principal diagnosis: Neurogenic Dyphagia Objective - Vital Signs Vital signs: Vital Signs - 12hr 11/13/19 11/13/19 11/14/19 23:00 23:14 01:00 Temperature 98.2 F Pulse Rate 65 70 Respiratory 16 16 Rate Blood Pressure 128/95 O2 Sat by Pulse 99 100 Oximetry 11/14/19 11/14/19 04:58 07:53 Temperature 97.8 F 98.4 F Pulse Rate 65 Respiratory 16 20 Rate Blood Pressure 150/92 135/69 O2 Sat by Pulse 100 Oximetry - Lab 11/09/19 05:26 11/13/19 04:44 Most recent lab results Calcium 8.9 mg/dL (8.4-10.2) 11/13/19 04:44 Phosphorus 3.00 mg/dL (2.5-4.5) D 11/13/19 04:44 Magnesium 2.20 mg/dL (1.7-2.3) 11/12/19 04:01 Urine Creatinine 14.8 mg/dL (0.1-20.0) 11/10/19 17:45 Urine Sodium 15 mmol/L 11/10/19 17:45 Medications & Allergies - Medications Allergies/Adverse Reactions: Allergies No Known Allergies Allergy (Verified 03/20/19 13:53) Home Medications: Home Medications Medication Instructions Recorded Confirmed Last Taken Type Ondansetron [Zofran ODT TAB] 4 mg PO Q8HR PRN #20 tab.rapdis 09/13/19 11/11/19 Unknown Rx Acetaminophen [Acetaminophen TAB] 650 mg PO Q4H PRN tablet 11/13/19 Unknown Rx Multivitamins Liq [Multiple 5 ml FEEDTUBE QDAY oral.liqd 11/13/19 Unknown Rx Vitamin Liq (Theragran)] Active Medications: Generic Name Dose Route Start Last Admin Trade Name Freq PRN Reason Stop Dose Admin Acetaminophen 650 mg 11/08/19 22:18 Tylenol PO Q4H PRN Pain MILD(1-3)/Fever >100.5/MEMBRENO Famotidine 10 mg 11/08/19 23:00 11/14/19 09:48 Pepcid IV 10 mg BID ANIYAH Administration Heparin Sodium (Porcine) 5,000 unit 11/09/19 12:00 11/14/19 09:48 Heparin SUB-Q 5,000 unit Q12HR ANIYAH Administration Hydromorphone HCl 0.5 mg 11/08/19 22:19 11/08/19 22:33 Dilaudid IV 0.5 mg Q3H PRN Administration Pain , Severe (7-10) Ceftriaxone Sodium 1 gm in 50 mls @ 100 mls/hr 11/09/19 10:00 11/14/19 09:48 Rocephin/Ns 1 Gm/50 Ml IV 11/15/19 10:29 100 mls/hr Q24HR ANIYAH Administration Protocol Potassium Chloride 40 meq/ 1,020 mls @ 75 mls/hr 11/11/19 10:00 11/13/19 15:00 Dextrose IV 75 mls/hr DIRECT ANIYAH Administration Morphine Sulfate 2 mg 11/08/19 22:19 11/09/19 04:33 Morphine IV 2 mg Q4H PRN Administration Pain, Moderate (4-6) Multivitamins 5 ml 11/13/19 10:00 11/14/19 09:48 Centrum Liq FEEDTUBE 5 ml QDAY ANIYAH Administration Ondansetron HCl 4 mg 11/08/19 22:18 Zofran IV Q8H PRN Nausea And Vomiting Sodium Chloride 10 ml 11/09/19 10:00 11/13/19 21:50 Sodium Chloride Flush Syringe 10 Ml IV 10 ml BID ANIYAH Administration Sodium Chloride 10 ml 11/08/19 22:18 Sodium Chloride Flush Syringe 10 Ml IV PRN PRN LINE FLUSH
[2019-11-14 11:59] VITALS: BP 133/67
[2019-11-14] MEDS ORDERED: FAMOTIDINE 10 MG TAB PO SCH (22:00)
== END 2019-11-14 15:54 | DRG 326 ==
LOC: ED 16:52 → 4A 19:05
PROVIDERS: ADMIT Internal Medicine; ATTEND Hospitalist
PROC: 0DP63UZ Removal of Feeding Device from Stomach, Percutaneous Approach (ICD-10-PCS; principal; 2019-11-12)
PROC: 0DH63UZ Insertion of Feeding Device into Stomach, Percutaneous Approach (ICD-10-PCS; 2019-11-12)
DX: K94.23 Gastrostomy malfunction (principal); N17.0 Acute kidney failure with tubular necrosis; E43 Unspecified severe protein-calorie malnutrition; G92 Toxic encephalopathy; E87.0 Hyperosmolality and hypernatremia; N30.00 Acute cystitis without hematuria; Z68.1 Body mass index [BMI] 19.9 or less, adult; Z66 Do not resuscitate; E86.0 Dehydration; E83.42 Hypomagnesemia; E87.6 Hypokalemia; E83.39 Other disorders of phosphorus metabolism; R74.0 Nonspecific elevation of levels of transaminase and lactic acid dehydrogenase [LDH]; R13.19 Other dysphagia; Z03.818 Encounter for observation for suspected exposure to other biological agents ruled out
CPT/HCPCS: 36415; 70450; 71045; 76770; 80048; 80053; 81001; 82140; 82570; 82962; 83735; 84100; 84300; 85025; 85610; 85730; 87040; 87086; G0378; J0360; J0696; J1170; J1644; J2270; J3475; J3480; J7030; J7040; J7070; U0003-CS

== ENCOUNTER 2020-06-15 19:55 | Emergency (ER) | payer MEDICARE ==
[2020-06-16 00:40] LABS: Basophils # (Auto) 0.1 K/mm3 (0.0-0.1); Eosinophils # (Auto) 0.3 K/mm3 (0.0-0.4); Eosinophils % (Auto) 4.2 % (0.0-4.3); Hematocrit 36.7 % (30.3-42.9); Hemoglobin 11.6 gm/dl (10.1-14.3); Lymphocytes # (Auto) 1.5 K/mm3 (1.2-5.4); Lymphocytes % (Auto) 20.5 % (13.4-35.0); Mean Corpuscular HGB Conc 32 % (30-34); Mean Corpuscular Volume 73 fl (79-97); Monocytes # (Auto) 0.6 K/mm3 (0.0-0.8); Monocytes % (Auto) 7.9 % (0.0-7.3); Platelet Count 204 K/mm3 (140-440); Red Blood Count 5.04 M/mm3 (3.65-5.03); Red Cell Distribution Width 15.3 % (13.2-15.2)
--- NOTE | 2020-06-16 09:39 | Emergency Department Report ---
ED General Adult HPI - General Chief complaint: Vaginal Bleeding Stated complaint: VAGINAL BLEEDING Time Seen by Provider: 06/16/20 09:24 Source: patient Mode of arrival: Stretcher Limitations: No Limitations - History of Present Illness Initial comments: 54-year-old -[place] female with history of CVA, seizures, and hypertension presents from her intermediate for vaginal bleeding yesterday. She reports she started having vaginal bleeding yesterday and that it is likely her menstrual cycle. Patient states last menstrual cycle was a few months ago. She denies any dysuria/hematuria, urinary frequency, or body aches/chills/sweats. She reports some mild lower abdominal cramping that is intermittent, but denies any currently - Related Data Previous Rx's Medication Instructions Recorded Last Taken Type Ondansetron [Zofran ODT TAB] 4 mg PO Q8HR PRN #20 tab.rapdis 09/13/19 Unknown Rx Acetaminophen [Acetaminophen TAB] 650 mg PO Q4H PRN tablet 11/13/19 Unknown Rx Multivitamins Liq [Multiple 5 ml FEEDTUBE QDAY oral.liqd 11/13/19 Unknown Rx Vitamin Liq (Theragran)] Iron Fum,Ps/Folic/Bcomp,C No.9 1 each PO BID 30 Days #60 capsule 12/05/19 Unknown Rx [Integra Plus Capsule] Allergies Allergy/AdvReac Type Severity Reaction Status Date / Time No Known Allergies Allergy Verified 03/20/19 13:53 ED Review of Systems ROS: Stated complaint: VAGINAL BLEEDING Other details as noted in HPI Constitutional: denies: malaise Respiratory: denies: cough, shortness of breath Cardiovascular: denies: chest pain Gastrointestinal: as per HPI. denies: nausea, vomiting, diarrhea, constipation Genitourinary: denies: urgency, dysuria, frequency, hematuria Skin: denies: rash, lesions, change in color Neurological: denies: headache Hematological/Lymphatic: denies: easy bleeding ED Past Medical Hx - Past Medical History Previous Medical History?: Yes Hx Hypertension: Yes Hx CVA: Yes Hx Seizures: Yes Additional medical history: seizure - Surgical History Past Surgical History?: Yes Additional Surgical History: brain surg - Social History Smoking Status: Never Smoker - Medications Home Medications: Home Medications Medication Instructions Recorded Confirmed Last Taken Type Ondansetron [Zofran ODT TAB] 4 mg PO Q8HR PRN #20 tab.rapdis 09/13/19 11/11/19 Unknown Rx Acetaminophen [Acetaminophen TAB] 650 mg PO Q4H PRN tablet 11/13/19 Unknown Rx Multivitamins Liq [Multiple 5 ml FEEDTUBE QDAY oral.liqd 11/13/19 Unknown Rx Vitamin Liq (Theragran)] Iron Fum,Ps/Folic/Bcomp,C No.9 1 each PO BID 30 Days #60 capsule 12/05/19 Unknown Rx [Integra Plus Capsule] ED Physical Exam - General Limitations: No Limitations General appearance: alert, in no apparent distress - Head Head exam: Present: atraumatic, normocephalic - Eye Eye exam: Present: normal appearance - Neck Neck exam: Present: normal inspection - Respiratory Respiratory exam: Present: normal lung sounds bilaterally. Absent: respiratory distress - Cardiovascular Cardiovascular Exam: Present: regular rate, normal rhythm - GI/Abdominal GI/Abdominal exam: Present: soft, normal bowel sounds. Absent: distended, tenderness, guarding, rebound, rigid - Extremities Exam Extremities exam: Present: full ROM - Neurological Exam Neurological exam: Present: alert, oriented X3 - Psychiatric Psychiatric exam: Present: normal affect, normal mood - Skin Skin exam: Present: warm, dry, intact, normal color. Absent: rash, cyanosis, diaphoretic, erythema, ecchymosis ED Course Vital Signs 06/15/20 06/16/20 22:40 12:03 Temperature 98.4 F 98.1 F Pulse Rate 91 H 81 Respiratory 14 20 Rate Blood Pressure 131/101 Blood Pressure 156/86 [Right] O2 Sat by Pulse 99 99 Oximetry ED Medical Decision Making - Lab Data Result diagrams: 06/15/20 23:23 06/16/20 13:39 - Radiology Data Radiology results: report reviewed ULTRASOUND PELVIS COMPLETE INDICATION / CLINICAL INFORMATION: vaginal bleeding. TECHNIQUE: Transabdominal. Duplex Color Doppler used: Yes. COMPARISON: None available FINDINGS: UTERUS: Present. - Appearance (if present): The uterus appears mildly enlarged and heterogeneous with multiple fibroids. - Size in cm (if present): 9.0 x 5.8 x 8.4 cm. - Endometrial Complex (if present): No significant abnormality.. Thickness in cm (if measured) = 0.65 - Mass lesions: There is a large heterogeneous area in the uterine fundus measuring up to 5 cm in diameter consistent with a fibroid. A similar appearing posterior wall mass measures 3.7 cm. Smaller fibroids are also suspected. - Additional findings: None. RIGHT ADNEXA: No significant ovarian cyst or mass. Normal color Doppler blood flow. The right ovary measures 3.4 x 2.8 x 2.6 cm. LEFT ADNEXA: The left ovary is not visualized. No gross abnormality in the left adnexa. URINARY BLADDER: No significant abnormality. FREE FLUID: None. ADDITIONAL FINDINGS: None. IMPRESSION: Moderate uterine fibroid disease as described. Unremarkable right ovary. The left ovary is not visualized. - Medical Decision Making 54-year-old -[place] female with history of CVA, seizures, and hypertension presents from her intermediate for vaginal bleeding yesterday. She reports she started having vaginal bleeding yesterday and that it is likely her menstrual cycle. Patient states last menstrual cycle was a few months ago. She denies any dysuria/hematuria, urinary frequency, or body aches/chills/sweats. She reports some mild lower abdominal cramping that is intermittent, but denies any currently Ultrasound shows uterine fibroids without any other acute abnormalities. Bleeding appears to be patient's menstrual cycle. She declined pelvic exam. No significant abnormalities noted on CBC or CMP. Patient denies any urinary symptoms. States she does not wish to stay to give a urinalysis. Her vitals are normal, she is well-appearing, she is stable for discharge home. Discussed signs and symptoms that should prompt immediate return to the emergency department in detail with patient who verbalized understanding peer Critical care attestation.: If time is entered above; I have spent that time in minutes in the direct care of this critically ill patient, excluding procedure time. ED Disposition Clinical Impression: Vaginal bleeding Disposition: DC-01 TO HOME OR SELFCARE Is pt being admited?: No Condition: Stable Instructions: Abnormal Uterine Bleeding Referrals: [facility] [Provider Group] - 3-5 Days
[2020-06-16 12:03] VITALS: BP 156/86
--- NOTE | 2020-06-16 12:23 | Ultrasound Report ---
ULTRASOUND PELVIS COMPLETE INDICATION / CLINICAL INFORMATION: vaginal bleeding. TECHNIQUE: Transabdominal. Duplex Color Doppler used: Yes. COMPARISON: None available FINDINGS: UTERUS: Present. - Appearance (if present): The uterus appears mildly enlarged and heterogeneous with multiple fibroid s. - Size in cm (if present): 9.0 x 5.8 x 8.4 cm. - Endometrial Complex (if present): No significant abnormality.. Thickness in cm (if measured) = 0.65 - Mass lesions: There is a large heterogeneous area in the uterine fundus measuring up to 5 cm in reese meter consistent with a fibroid. A similar appearing posterior wall mass measures 3.7 cm. Smaller fib roids are also suspected. - Additional findings: None. RIGHT ADNEXA: No significant ovarian cyst or mass. Normal color Doppler blood flow. The right ovary m easures 3.4 x 2.8 x 2.6 cm. LEFT ADNEXA: The left ovary is not visualized. No gross abnormality in the left adnexa. URINARY BLADDER: No significant abnormality. FREE FLUID: None. ADDITIONAL FINDINGS: None. IMPRESSION: Moderate uterine fibroid disease as described. Unremarkable right ovary. The left ovary is not visualized. Signer Name: Caesar Harman Jr, MD Signed: 06/16/2020 12:18 PM Workstation Name: [id number]
[2020-06-16] MEDS ORDERED: SODIUM CHLORIDE 0.9% 1000 ML 1,000 ML IV ONE (13:34)
[2020-06-16 14:22] LABS: Alanine Aminotransferase 13 units/L (7-56); Albumin 3.7 g/dL (3.9-5); BUN/Creatinine Ratio 28; Blood Urea Nitrogen 17 mg/dL (7-17); Hemolysis Index 11
== END 2020-06-16 19:00 | disposition home or self-care (01) ==
LOC: ED 19:55
DX: N93.9 Abnormal uterine and vaginal bleeding, unspecified (principal); I10 Essential (primary) hypertension; Z79.899 Other long term (current) drug therapy; Z86.73 Personal history of transient ischemic attack (TIA), and cerebral infarction without residual deficits; Z98.890 Other specified postprocedural states; Z86.69 Personal history of other diseases of the nervous system and sense organs
CPT/HCPCS: 36415; 76856; 80053; 84702; 85025; 86900; 86901; 96360; 99284; J7030

== ENCOUNTER 2020-11-11 18:32 | Emergency (ER) | payer MEDICARE ==
[2020-11-11 19:52] LABS: Basophils # (Auto) 0.1 K/mm3 (0.0-0.1); Basophils % (Auto) 1.3 % (0.0-1.8); Eosinophils # (Auto) 0.6 K/mm3 (0.0-0.4); Eosinophils % (Auto) 7.9 % (0.0-4.3); Hematocrit 35.5 % (30.3-42.9); Hemoglobin 11.5 gm/dl (10.1-14.3); Lymphocytes # (Auto) 1.5 K/mm3 (1.2-5.4); Lymphocytes % (Auto) 19.5 % (13.4-35.0); Mean Corpuscular HGB Conc 32 % (30-34); Mean Corpuscular Volume 73 fl (79-97); Monocytes # (Auto) 0.8 K/mm3 (0.0-0.8); Platelet Count 207 K/mm3 (140-440); Red Blood Count 4.87 M/mm3 (3.65-5.03)
--- NOTE | 2020-11-11 20:03 | Emergency Department Report ---
HPI - General Time Seen by Provider: 11/11/20 19:28 - HPI HPI: This is a 54-year-old female who presents to the emergency department from her [facility] home with a complaint of heavy vaginal bleeding. The patient's records show that she has a history of epilepsy, hypertension, previous CVA and some possible kidney issues. Patient has a history of uterine fibroid disease. She was here in May of last year for similar issues with vaginal bleeding. She had a hemoglobin of 11.6 at that time and an ultrasound that showed the fibroids. The patient denies any abdominal or pelvic pain. ED Past Medical Hx - Past Medical History Hx Hypertension: Yes Hx CVA: Yes Hx Seizures: Yes Additional medical history: seizure - Surgical History Additional Surgical History: brain surg - Social History Smoking Status: Never Smoker - Medications Home Medications: Home Medications Medication Instructions Recorded Confirmed Last Taken Type Ondansetron [Zofran ODT TAB] 4 mg PO Q8HR PRN #20 tab.rapdis 09/13/19 11/11/19 Unknown Rx Acetaminophen [Acetaminophen TAB] 650 mg PO Q4H PRN tablet 11/13/19 Unknown Rx Multivitamins Liq [Multiple 5 ml FEEDTUBE QDAY oral.liqd 11/13/19 Unknown Rx Vitamin Liq (Theragran)] Iron Fum,Ps/Folic/Bcomp,C No.9 1 each PO BID 30 Days #60 capsule 12/05/19 Unkn own Rx [Integra Plus Capsule] ED Review of Systems ROS: Stated complaint: VAGINAL BLEEDING Other details as noted in HPI Comment: All other systems reviewed and negative Constitutional: denies: chills, fever Eyes: denies: eye pain, vision change ENT: denies: ear pain, throat pain Respiratory: denies: cough, shortness of breath Cardiovascular: denies: chest pain, palpitations Gastrointestinal: denies: abdominal pain, vomiting Genitourinary: other (Vaginal bleeding). denies: dysuria, discharge Musculoskeletal: denies: back pain, arthralgia Skin: denies: rash, lesions Neurological: denies: headache, weakness Physical Exam - Physical Exam Physical Exam: GENERAL: The patient is well-developed well-nourished. HENT: Normocephalic. Atraumatic. Patient has moist mucous membranes. EYES: Extraocular motions are intact. NECK: Supple. Trachea is midline. CHEST/LUNGS: Clear to auscultation. There is no respiratory distress noted. HEART/CARDIOVASCULAR: Regular. There is no tachycardia. There is no murmur. ABDOMEN: Abdomen is soft, nontender. Patient has normal bowel sounds. SKIN: Skin is warm and dry. NEURO: The patient is awake, alert, and cooperative. Normal speech. MUSCULOSKELETAL: There is no tenderness or deformity. PELVIC: There is a mild to moderate amount of blood seen in the vagina. ED Course - Reevaluation(s) Reevaluation #1: 11/12/20 01:03 Pelvic examination done with nurse Shy at bedside to air operations manager and assist. ED Medical Decision Making - Lab Data Result diagrams: 11/11/20 19:36 11/11/20 19:36 Lab Results 11/11/20 11/11/20 11/11/20 Range/Units 19:36 19:36 19:36 WBC 7.7 (4.5-11.0) K/mm3 RBC 4.87 (3.65-5.03) M/mm3 Hgb 11.5 (10.1-14.3) gm/dl Hct 35.5 (30.3-42.9) % MCV 73 L (79-97) fl MCH 24 L (28-32) pg MCHC 32 (30-34) % RDW 15.0 (13.2-15.2) % Plt Count 207 (140-440) K/mm3 Lymph % (Auto) 19.5 (13.4-35.0) % [place] % (Auto) 10.0 H (0.0-7.3) % Eos % (Auto) 7.9 H (0.0-4.3) % Baso % (Auto) 1.3 (0.0-1.8) % Lymph # (Auto) 1.5 (1.2-5.4) K/mm3 [place] # (Auto) 0.8 (0.0-0.8) K/mm3 Eos # (Auto) 0.6 H (0.0-0.4) K/mm3 Baso # (Auto) 0.1 (0.0-0.1) K/mm3 Seg Neutrophils % 61.3 (40.0-70.0) % Seg Neutrophils # 4.7 (1.8-7.7) K/mm3 PT 12.5 (12.2-14.9) Sec. INR 0.94 (0.87-1.13) APTT 36.6 (24.2-36.6) Sec. Sodium 136 L (137-145) mmol/L Potassium 5.6 H (3.6-5.0) mmol/L Chloride 101.9 (98-107) mmol/L Carbon Dioxide 24 (22-30) mmol/L Anion Gap 16 mmol/L BUN 20 H (7-17) mg/dL Creatinine 0.9 (0.6-1.2) mg/dL Estimated GFR > 60 ml/min BUN/Creatinine Ratio 22 % Glucose 93 (65-100) mg/dL Calcium 8.5 (8.4-10.2) mg/dL Total Bilirubin 0.30 (0.1-1.2) mg/dL AST 48 H (5-40) units/L ALT 18 (7-56) units/L Alkaline Phosphatase 149 H (35-129) units/L Total Protein 7.1 (6.3-8.2) g/dL Albumin 3.3 L (3.9-5) g/dL Albumin/Globulin Ratio 0.9 % - Medical Decision Making This patient was sent in from her residential facility secondary to vaginal bleeding. She has a history of uterine fibroid disease and was seen here in May for similar symptoms. On examination the patient does not appear in any acute distress. I was able to see into the vagina and there is a mild to moderate amount of blood seen. I was unable to do any significant pelvic exam as the patient was unable to tolerate it and then deferred it. Her labs came back with a hemoglobin of 11.5. The rest of the labs have been mostly unremarka ble except for some hyperkalemia with a potassium of 5.6, for which the patient was given a dose of Kayexalate. Vital signs have been reassuring throughout her ED course. Her hemoglobin level does not require any blood transfusion. She will be discharged back to her residential facility and has been given outpatient referrals for [facility]. Critical Care Time: No Critical care attestation.: If time is entered above; I have spent that time in minutes in the direct care of this critically ill patient, excluding procedure time. ED Disposition Clinical Impression: Abnormal vaginal bleeding, Hyperkalemia Disposition: TO HOME OR SELFCARE Is pt being admited?: No Condition: Stable Instructions: Abnormal Uterine Bleeding, Hyperkalemia, Gzaw-ke-Nthm Additional Instructions: Please follow-up with an [facility] PROGRAM [facility]N in the next few days regarding the abnormal vaginal bleeding. Your hemoglobin today was about 11.5, which is the same as when you were here in May 2020. It is not at a level that would require a transfusion. Your potassium was slightly elevated today at 5.6. You have been given a dose of Kayexalate which should help to decrease the potassium level. Please follow- up with a primary care physician for a repeat potassium level. Return to the emergency department with any worsening of your symptoms, new or concerning symptoms not addressed during this current emergency department visit, or with any acute distress. Referrals: [facility] [Provider Group] - 3-5 Days [facility] [Provider Group] - 3-5 Days Time of Disposition: 20:40
[2020-11-11 20:04] LABS: INR 0.94 (0.87-1.13)
[2020-11-11 20:05] LABS: Partial Thromboplastin Time 36.6 Sec. (24.2-36.6)
[2020-11-11 20:11] LABS: Alanine Aminotransferase 18 units/L (7-56); Albumin 3.3 g/dL (3.9-5); BUN/Creatinine Ratio 22; Blood Urea Nitrogen 20 mg/dL (7-17); Calcium 8.5 mg/dL (8.4-10.2); Hemolysis Index 352
[2020-11-11] MEDS ORDERED: SODIUM POLYSTYRENE 15 GM/60 ML ORAL LIQD PO ONE (20:20)
[2020-11-12 02:23] VITALS: BP 163/97
== END 2020-11-12 02:26 | disposition home or self-care (01) ==
LOC: ED 18:32
DX: N93.9 Abnormal uterine and vaginal bleeding, unspecified (principal); E87.5 Hyperkalemia; I10 Essential (primary) hypertension; Z86.73 Personal history of transient ischemic attack (TIA), and cerebral infarction without residual deficits; Z79.899 Other long term (current) drug therapy; Z86.69 Personal history of other diseases of the nervous system and sense organs; Z98.890 Other specified postprocedural states
CPT/HCPCS: 36415; 80053; 85025; 85610; 85730

== ENCOUNTER 2021-04-20 02:58 | Emergency (ER) | payer MEDICARE | END 2021-04-21 03:47 | LOC: ED 02:58 | DX: Z00.00 Encounter for general adult medical examination without abnormal findings (principal); Z53.21 Procedure and treatment not carried out due to patient leaving prior to being seen by health care provider ==